=== PATIENT | female | born 1955 | race Caucasian/White ===

== ENCOUNTER 2020-09-09 07:44 | Emergency (ER) | payer MEDICARE ==
[2020-09-09 07:55] VITALS: BP 162/73; PULSE 66; RESP 16; TEMP 98.5
[2020-09-09] MEDS ORDERED: DIPH,PERTUS(ACELL)TETVAC-LF 0.5 ML VIAL IM ONE (08:05)
[2020-09-09] MEDS ORDERED: CEPHALEXIN 500MG STARTER PACK 4 CAP BTL PO STA (08:06)
--- NOTE | 2020-09-09 08:18 | ED ---
General Adult HPI - General Chief complaint: Wound/Laceration Stated complaint: Hand Lac Time Seen by Provider: 09/09/20 07:57 Source: patient, RN notes reviewed Mode of arrival: ambulatory Limitations: no limitations - History of Present Illness Initial comments: 64-year-old female presents to the emergency room for a chief complaint of laceration to the left hand. Patient states that 4 days ago she was using a zip tie when it caught her hand. Patient reports that she super glued it but now it does not seem to be healing as the superglue came off. She states there is some redness around it which she is concerned about. She denies any pain moving her fingers. Tetanus is not up-to-date.Patient has no other complaints at this time including shortness of breath, chest pain, abdominal pain, nausea or vomiting, headache, or visual changes. - Related Data Home Medications Medication Instructions Recorded Confirmed ALPRAZolam [Xanax] 0.5 mg PO BID PRN 01/24/15 01/24/15 Nebivolol [Bystolic] 5 mg PO DAILY 01/24/15 01/24/15 Venlafaxine HCl ER [Effexor Xr] 75 mg PO DAILY 01/24/15 01/24/15 Previous Rx's Medication Instructions Recorded Famotidine [Pepcid] 20 mg PO BID #60 tablet 01/24/15 diphenhydrAMINE [Benadryl] 25 mg PO TID PRN #30 capsule 01/24/15 predniSONE 50 mg PO DAILY 5 Days tab 01/24/15 Cephalexin [Keflex] 500 mg PO Q6HR 1 Days #28 cap 09/09/20 Allergies Allergy/AdvReac Type Severity Reaction Status Date / Time No Known Allergies Allergy Verified 09/09/20 07:55 Review of Systems ROS Statement: Those systems with pertinent positive or pertinent negative responses have been documented in the HPI. ROS Other: All systems not noted in ROS Statement are negative. Past Medical History Past Medical History: No Reported History History of Any Multi-Drug Resistant Organisms: None Reported Past Surgical History: No Surgical Hx Reported Past Psychological History: Anxiety, Depression, Panic Disorder Smoking Status: Former smoker Past Alcohol Use History: None Reported Past Drug Use History: None Reported General Exam Limitations: no limitations General appearance: alert, in no apparent distress Head exam: Present: atraumatic, normocephalic, normal inspection Eye exam: Present: normal appearance, PERRL, EOMI. Absent: scleral icterus, conjunctival injection, periorbital swelling ENT exam: Present: normal exam, mucous membranes moist Neck exam: Present: normal inspection. Absent: tenderness, meningismus, lymphadenopathy Respiratory exam: Present: normal lung sounds bilaterally. Absent: respiratory distress, wheezes, rales, rhonchi, stridor Cardiovascular Exam: Present: regular rate, normal rhythm, normal heart sounds. Absent: systolic murmur, diastolic murmur, rubs, gallop, clicks Extremities exam: Present: other (Patient has a 1 cm laceration noted to the dorsum of the left hand between the first and second metacarpals not quite in the web space. Wound is not gaping however there does not seem to be closure of the wound. There is slight granulation tissue causing an erythematous appearance to the wound how) Course Vital Signs 09/09/20 07:49 Temperature 98.5 F Pulse Rate 66 Respiratory 16 Rate Blood Pressure 162/73 O2 Sat by Pulse 97 Oximetry Medical Decision Making - Medical Decision Making Wound was cleaned with soap and water. Steri-Strips were applied as wound could not be closed with sutures given it has been open for 4 days at this point which would increase risk of infection. At this time I believe skin changes patient is concerned about are related to granulation tissue. The wound is not hot to touch, there is no spreading or streaking redness. There is no purulent drainage. I did discuss signs to watch for that would indicate infection. Given tissue will close by secondary intention healing at this point she was started on Keflex to prevent infection. I felt this was necessary as patient has agoraphobia and has not left her house in 2 years. She may have poor follow-up and therefore I would prefer to prevent infection from occurring. Tetanus is updated. I did recommend she follow up with her doctor. She will return here for any worsening symptoms. Disposition Clinical Impression: Laceration Disposition: HOME SELF-CARE Condition: Good Instructions (If sedation given, give patient instructions): Laceration (ED), Steristrips (ED) Additional Instructions: Please monitor for spreading redness or streaking redness up the hand or fevers and return if these occur. Otherwise this laceration will heal from the inside out. Tried to keep dirty water out of it. Steri-Strips may help keep the wound closed. Follow-up with your doctor in one to 2 days for a recheck. However if you have any worsening symptoms return to the emergency room. Prescriptions: Cephalexin [Keflex] 500 mg PO Q6HR 1 Days #28 cap Is patient prescribed a controlled substance at d/c from ED?: No Referrals: Jason Dietrich MD [Primary Care Provider] - 1-2 days Time of Disposition: 08:16
== END 2020-09-09 08:29 | disposition home or self-care (01) ==
LOC: EC 07:44
DX: S61.412A Laceration without foreign body of left hand, initial encounter (principal); F41.9 Anxiety disorder, unspecified; F32.9 Major depressive disorder, single episode, unspecified; F40.01 Agoraphobia with panic disorder; Z79.899 Other long term (current) drug therapy; Z23 Encounter for immunization; Z87.891 Personal history of nicotine dependence; W26.8XXA Contact with other sharp object(s), not elsewhere classified, initial encounter; Y93.89 Activity, other specified
CPT/HCPCS: 90471; 90715; 99282

== ENCOUNTER 2021-11-29 11:35 | Inpatient (IN) | payer MEDICARE ==
[2021-11-29] MEDS ORDERED: SODIUM CHLORIDE 0.9% 1,000 ML IV STA (13:16)
[2021-11-29] MEDS ORDERED: ONDANSETRON 4 MG/2 ML VIAL IVP STA (13:18)
[2021-11-29 13:41] LABS: Basophils % (A) 0 %; Eosinophils % (A) 1 %; HGB 12.2 gm/dL (11.4-16.0); Lymphocytes # (A) 0.9 k/uL (1.0-4.8); Lymphocytes % (A) 14 %; MCH 32.6 pg (25.0-35.0); MCHC 34.8 g/dL (31.0-37.0); MCV 93.6 fL (80.0-100.0); Mean Platelet Volume 7.4; Monocytes # (A) 0.5 k/uL (0-1.0); Monocytes % (A) 8 %; Neutrophils # (A) 4.8 k/uL (1.3-7.7); Neutrophils % (A) 76 %; Platelet Count 131 k/uL (150-450); Poikilocytosis Moderate; RBC 3.74 m/uL (3.80-5.40); RDW 15.6 % (11.5-15.5); WBC 6.3 k/uL (3.8-10.6)
[2021-11-29 13:50] LABS: ALT 32 U/L (4-34); AST 81 U/L (14-36); African American GFR (CKD) >90 (>60 ml/min/1.73 sqM); Alkaline Phosphatase 120 U/L (38-126); Amylase 70 U/L (30-110); Anion Gap 9 mmol/L; Blood Urea Nitrogen 17 mg/dL (7-17); Calcium 7.6 mg/dL (8.4-10.2); Carbon Dioxide 27 mmol/L (22-30); Chloride 106 mmol/L (98-107); Glucose 110 mg/dL (74-99); Lipase 584 U/L (23-300); Magnesium 2.2 mg/dL (1.6-2.3); Non-African American GFR(CKD) 89 (>60 ml/min/1.73 sqM); Potassium 3.4 mmol/L (3.5-5.1); Sodium 142 mmol/L (137-145); Total Bilirubin 1.7 mg/dL (0.2-1.3); Total Protein 7.2 g/dL (6.3-8.2)
--- NOTE | 2021-11-29 13:52 | XR ---
EXAMINATION TYPE: XR chest 2V DATE OF EXAM: 11/29/2021 COMPARISON: 11/19/2011 TECHNIQUE: PA and lateral views submitted. HISTORY: Shortness of breath FINDINGS: There are diffuse bilateral infiltrates. No pleural effusion or pneumothorax. Arthropathy of the shou lders. Heart size normal. Hypertrophic and degenerative change of the spine. IMPRESSION: 1. Diffuse bilateral infiltrates. Correlate for multifocal pneumonia.
[2021-11-29 14:01] LABS: INR 1.1 (<1.2); Prothrombin Time 11.1 sec (9.0-12.0)
--- NOTE | 2021-11-29 14:03 | ED ---
General Adult HPI - General Chief complaint: Nausea/Vomiting/Diarrhea Stated complaint: nausea, vomiting, diarrhea Time Seen by Provider: 11/29/21 11:40 Source: patient, EMS, RN notes reviewed Mode of arrival: EMS - History of Present Illness Initial comments: 66-year-old female presents to the emergency room for not feeling well. For the past week patient has been sick with nausea vomiting diarrhea, cough, congestion and shortness of breath. Apparently patient is not vaccinated for Covid but hasn't left her house in years until last week when she had to take her grandchi ldren to the hospital. Shortly afterwards patient became ill. Patient has not seen a doctor in several years as she does not leave the house and therefore has no known medical history. Patient has no other complaints at this time including chest pain, abdominal pain, headache, or visual changes. - Related Data Home Medications Medication Instructions Recorded Confirmed ALPRAZolam [Xanax] 0.5 mg PO BID PRN 01/24/15 01/24/15 Nebivolol [Bystolic] 5 mg PO DAILY 01/24/15 01/24/15 Venlafaxine HCl ER [Effexor Xr] 75 mg PO DAILY 01/24/15 01/24/15 Previous Rx's Medication Instructions Recorded Famotidine [Pepcid] 20 mg PO BID #60 tablet 01/24/15 diphenhydrAMINE [Benadryl] 25 mg PO TID PRN #30 capsule 01/24/15 predniSONE 50 mg PO DAILY 5 Days tab 01/24/15 Cephalexin [Keflex] 500 mg PO Q6HR 1 Days #28 cap 09/09/20 Allergies Allergy/AdvReac Type Severity Reaction Status Date / Time No Known Allergies Allergy Verified 11/29/21 12:10 Review of Systems ROS Statement: Those systems with pertinent positive or pertinent negative responses have been documented in the HPI. ROS Other: All systems not noted in ROS Statement are negative. Past Medical History Past Medical History: No Reported History History of Any Multi-Drug Resistant Organisms: None Reported Past Surgical History: No Surgical Hx Reported Additional Past Surgical History / Comment(s): rhinoblasty, bladder suspension, Past Psychological History: Anxiety, Depression, Panic Disorder Smoking Status: Former smoker Past Alcohol Use History: None Reported Past Drug Use History: None Reported General Exam General appearance: alert, in no apparent distress Head exam: Present: atraumatic Eye exam: Present: normal appearance, PERRL, EOMI. Absent: scleral icterus, conjunctival injection ENT exam: Present: normal exam, mucous membranes moist Neck exam: Present: normal inspection, tenderness, full ROM Respiratory exam: Present: rales. Absent: respiratory distress, wheezes Cardiovascular Exam: Present: regular rate, normal rhythm, normal heart sounds GI/Abdominal exam: Present: soft, normal bowel sounds. Absent: distended, tenderness Course Vital Signs 11/29/21 12:01 Temperature 97.6 F Pulse Rate 82 Respiratory 22 Rate Blood Pressure 154/81 O2 Sat by Pulse 91 L Oximetry EKG Findings - EKG Comments: EKG Findings:: Normal sinus rhythm, ventricular rate 79, [place] interval 126, QTc 463 Medical Decision Making - Medical Decision Making Patient is 91% on 4 L nasal cannula. She was 88% on room air. Laboratory evaluation relatively unremarkable. However, covid 19 was detected. Age- adjusted d-dimer is within normal limits. Chest x-ray shows diffuse bilateral infiltrates, correlate for multifocal pneumonia. Suspect patient's symptoms are secondary to COVID-19. Patient will be admitted, Dr. Cantu aware requests pul monology consultation. Patient will be started on Decadron. - Lab Data Result diagrams: 11/29/21 13:37 11/29/21 13:37 Lab Results 11/29/21 11/29/21 11/29/21 Range/Units 13:37 13:37 13:37 WBC 6.3 (3.8-10.6) k/uL RBC 3.74 L (3.80-5.40) m/uL Hgb 12.2 (11.4-16.0) gm/dL Hct 35.0 (34.0-46.0) % MCV 93.6 (80.0-100.0) fL MCH 32.6 (25.0-35.0) pg MCHC 34.8 (31.0-37.0) g/dL RDW 15.6 H (11.5-15.5) % Plt Count 131 L (150-450) k/uL MPV 7.4 Neutrophils % 76 % Lymphocytes % 14 % Monocytes % 8 % Eosinophils % 1 % Basophils % 0 % Neutrophils # 4.8 (1.3-7.7) k/uL Lymphocytes # 0.9 L (1.0-4.8) k/uL Monocytes # 0.5 (0-1.0) k/uL Eosinophils # 0.0 (0-0.7) k/uL Basophils # 0.0 (0-0.2) k/uL Poikilocytosis Moderate PT 11.1 (9.0-12.0) sec INR 1.1 (<1.2) APTT 21.2 L (22.0-30.0) sec D-Dimer 0.62 H (<0.60) mg/L FEU Sodium 142 (137-145) mmol/L Potassium 3.4 L (3.5-5.1) mmol/L Chloride 106 (98-107) mmol/L Carbon Dioxide 27 (22-30) mmol/L Anion Gap 9 mmol/L BUN 17 (7-17) mg/dL Creatinine 0.71 (0.52-1.04) mg/dL Est GFR (CKD-EPI)AfAm >90 (>60 ml/min/1.73 sqM) Est GFR (CKD-EPI)NonAf 89 (>60 ml/min/1.73 sqM) Glucose 110 H (74-99) mg/dL Calcium 7.6 L (8.4-10.2) mg/dL Magnesium 2.2 (1.6-2.3) mg/dL Total Bilirubin 1.7 H (0.2-1.3) mg/dL AST 81 H (14-36) U/L ALT 32 (4-34) U/L Alkaline Phosphatase 120 (38-126) U/L Troponin I (0.000-0.034) ng/mL Total Protein 7.2 (6.3-8.2) g/dL Albumin 3.0 L (3.5-5.0) g/dL Amylase 70 (30-110) U/L Lipase 584 H (23-300) U/L Coronavirus (PCR) (Not Detectd) 11/29/21 11/29/21 Range/Units 13:37 13:44 WBC (3.8-10.6) k/uL RBC (3.80-5.40) m/uL Hgb (11.4-16.0) gm/dL Hct (34.0-46.0) % MCV (80.0-100.0) fL MCH (25.0-35.0) pg MCHC (31.0-37.0) g/dL RDW (11.5-15.5) % Plt Count (150-450) k/uL MPV Neutrophils % % Lymphocytes % % Monocytes % % Eosinophils % % Basophils % % Neutrophils # (1.3-7.7) k/uL Lymphocytes # (1.0-4.8) k/uL Monocytes # (0-1.0) k/uL Eosinophils # (0-0.7) k/uL Basophils # (0-0.2) k/uL Poikilocytosis PT (9.0-12.0) sec INR (<1.2) APTT (22.0-30.0) sec D-Dimer (<0.60) mg/L FEU Sodium (137-145) mmol/L Potassium (3.5-5.1) mmol/L Chloride (98-107) mmol/L Carbon Dioxide (22-30) mmol/L Anion Gap mmol/L BUN (7-17) mg/dL Creatinine (0.52-1.04) mg/dL Est GFR (CKD-EPI)AfAm (>60 ml/min/1.73 sqM) Est GFR (CKD-EPI)NonAf (>60 ml/min/1.73 sqM) Glucose (74-99) mg/dL Calcium (8.4-10.2) mg/dL Magnesium (1.6-2.3) mg/dL Total Bilirubin (0.2-1.3) mg/dL AST (14-36) U/L ALT (4-34) U/L Alkaline Phosphatase (38-126) U/L Troponin I <0.012 (0.000-0.034) ng/mL Total Protein (6.3-8.2) g/dL Albumin (3.5-5.0) g/dL Amylase (30-110) U/L Lipase (23-300) U/L Coronavirus (PCR) Detected A (Not Detectd) Disposition Clinical Impression: COVID-19, Acute respiratory failure with hypoxia, Pneumonia due to COVID-19 virus Disposition: ADMITTED IP TO THIS HOSP Is patient prescribed a controlled substance at d/c from ED?: No Referrals: None,Stated [Primary Care Provider] - 1-2 days Time of Disposition: 14:56
[2021-11-29 14:18] LABS: Partial Thromboplastin Time 21.2 sec (22.0-30.0)
[2021-11-29] MEDS ORDERED: NALOXONE 0.4 MG/ML 1 ML VIAL IV PRN (14:56)
[2021-11-29] MEDS ORDERED: ACETAMINOPHEN TAB 325 MG TAB PO PRN (14:56)
[2021-11-29] MEDS ORDERED: ONDANSETRON 4 MG/2 ML VIAL IVP PRN (14:56)
[2021-11-29] MEDS ORDERED: DEXAMETHASONE SOD PHOSPHATE 10 MG/ML 1 ML VIAL IVP STA (14:58)
[2021-11-29] MEDS: SODIUM CHLORIDE 0.9% 1,000 ML IV SCH (15:20)
[2021-11-29 15:36] LABS: C Reactive Protein 4.2 mg/dL (<1.0)
--- NOTE | 2021-11-29 18:31 | P.CNPUL ---
History of Present Illness Consult date: 11/29/21 Reason for consult: dyspnea, hypoxemia, pneumonia History of present illness: 66-year-old female patient, came into the emergency department because of her last weakness, fatigue, nausea and emesis, diarrhea, cough and congestion and shortness of breath. Apparently, the patient has been essentially staying at home without any exposure to any individuals outside her house. Nevertheless, few weeks back, she took her grandchildren to [facility] in the short and she thought that she got exposed to COVID 19 at that time. She started getting symptomatic more than 2 weeks ago. She is coming in with worsening of shortness of breath and overall condition. Note that during this time, the patient did not seek any medical help and she did not take any treatment. The patient has not been vaccinated for COVID 19. She came into the emergency with diffuse bilateral pulmonary infiltrates and hypoxemia and the patient was placed on oxygen 6 L per minute nasal cannula. The patient was hemodynamically stable. The patient was somewhat dehydrated. BUN was at 17 with a creatinine of 0.7 and a white cell count is 6.3. LFTs showed an AST of 81, ALT of 32, alk phos of 120, Na 142, troponin was negative and the COVID 19 virus by PCR came back positive. Review of Systems Constitutional: Reports daytime sleepiness, Reports fatigue, Reports fever, Reports lethargy, Reports malaise, Reports poor appetite, Reports weakness Eyes: denies as per HPI, denies blurred vision, denies bulging eye, denies decreased vision, denies diplopia, denies discharge, denies dry eye, denies irritation, denies itching, denies pain, denies photophobia, denies loss of peripheral vision, denies loss of vision, denies tunnel vision/blind spots Ears: deny: decreased hearing, ear discharge, earache, tinnitus Ears, nose, mouth and throat: Reports as per HPI Breasts: absent: as per HPI, change in shape, gynecomastia, masses, nipple discharge, pain, skin changes, swelling Cardiovascular: Reports dyspnea on exertion Respiratory: Reports cough, Reports dyspnea Gastrointestinal: Reports as per HPI, Reports diarrhea, Reports nausea, Reports vomiting Genitourinary: Reports as per HPI Menstruation: Reports as per HPI Musculoskeletal: Reports as per HPI Musculoskeletal: absent: ankle pain, ankle stiffness, ankle swelling, as per HPI, elbow pain, elbow stiffness, elbow swelling, foot pain, foot stiffness, foot swelling, hand pain, hand stiffness, hand swelling, hip pain, hip stiffness, hip swelling, knee pain, knee stiffness, knee swelling, shoulder pain, shoulder stiffness, shoulder swelling, wrist pain, wrist stiffness, wrist swelling Integumentary: Reports as per HPI Neurological: Reports as per HPI Psychiatric: Reports as per HPI Endocrine: Reports as per HPI, Reports fatigue Hematologic/Lymphatic: Reports as per HPI Allergic/Immunologic: Reports as per HPI Past Medical History Past Medical History: No Reported History History of Any Multi-Drug Resistant Organisms: None Reported Past Surgical History: No Surgical Hx Reported Additional Past Surgical History / Comment(s): rhinoblasty, bladder suspension, Past Psychological History: Anxiety, Depression, Panic Disorder Smoking Status: Former smoker Past Alcohol Use History: None Reported Past Drug Use History: None Reported Medications and Allergies Home Medications Medication Instructions Recorded Confirmed Type ALPRAZolam [Xanax] 0.5 mg PO BID PRN 01/24/15 01/24/15 History Famotidine [Pepcid] 20 mg PO BID #60 tablet 01/24/15 Rx Nebivolol [Bystolic] 5 mg PO DAILY 01/24/15 01/24/15 History Venlafaxine HCl ER [Effexor Xr] 75 mg PO DAILY 01/24/15 01/24/15 History diphenhydrAMINE [Benadryl] 25 mg PO TID PRN #30 capsule 01/24/15 Rx predniSONE 50 mg PO DAILY 5 Days tab 01/24/15 Rx Cephalexin [Keflex] 500 mg PO Q6HR 1 Days #28 cap 09/09/20 Rx Allergies Allergy/AdvReac Type Severity Reaction Status Date / Time No Known Allergies Allergy Verified 11/29/21 12:10 Physical Exam Vitals: Vital Signs Temp Pulse Resp BP Pulse Ox 11/29/21 17:26 89 20 147/68 91 L 11/29/21 16:00 99.1 F 70 20 147/75 96 11/29/21 14:00 80 14 126/51 88 L 11/29/21 12:30 77 29 H 152/70 94 L 11/29/21 12:08 91 L 11/29/21 12:01 97.6 F 82 22 154/81 91 L Intake and Output 11/29/21 11/29/2121 06:59 14:59 22:59 Other: Weight 99.79 kg General appearance: alert, in no apparent distress, looks lethargic currently on 6 L by nasal cannula Head exam: Present: atraumatic Eye exam: Present: normal appearance, PERRL, EOMI. Absent: scleral icterus, conjunctival injection ENT exam: Present: normal exam, mucous membranes moist Neck exam: Present: normal inspection, tenderness, full ROM Respiratory exam: Lungs diminished breath sounds bilaterally along with crackles in the lung bases Cardiovascular Exam: Present: regular rate, normal rhythm, normal heart sounds GI/Abdominal exam: Present: soft, normal bowel sounds. Absent: distended, tenderness Examination of the extremities revealed easily palpable radial, femoral and pedal pulses. There was no cyanosis, clubbing or edema. Examination of the skin revealed no evidence of significant rashes, suspicious appearing nevi or other concerning lesions. Neurologically, the patient is awake and alert and the patient does not have any focal neurological deficit. Cranial nerves are essentially intact. Results - Laboratory Findings CBC and BMP: 11/29/21 13:37 11/29/21 13:37 PT/INR, D-dimer PT 11.1 sec (9.0-12.0) 11/29/21 13:37 INR 1.1 (<1.2) 11/29/21 13:37 D-Dimer 0.62 mg/L FEU (<0.60) H 11/29/21 13:37 Abnormal lab findings: Abnormal Labs 11/29/21 11/29/21 11/29/21 13:37 13:37 13:37 RBC 3.74 L RDW 15.6 H Plt Count 131 L Lymphocytes # 0.9 L APTT 21.2 L D-Dimer 0.62 H Potassium 3.4 L Glucose 110 H Calcium 7.6 L Total Bilirubin 1.7 H AST 81 H Lactate Dehydrogenase C-Reactive Protein Albumin 3.0 L Lipase 584 H Coronavirus (PCR) 11/29/21 11/29/21 13:44 15:14 RBC RDW Plt Count Lymphocytes # APTT D-Dimer Potassium Glucose Calcium Total Bilirubin AST Lactate Dehydrogenase 1027 H C-Reactive Protein 4.2 H Albumin Lipase Coronavirus (PCR) Detected A - Diagnostic Findings Chest x-ray: image reviewed Assessment and Plan Plan: 1 Covid 19 related pneumonia with secondary respiratory distress, cough and shortness of breath and hypoxic respiratory failure, symptoms started more than 2 weeks ago and the patient has not received any treatment on an outpatient basis. This is a non-vaccinated individual 2 acute hypoxic respiratory failure secondary to above currently on 6 L 3 nausea and emesis and diarrhea secondary to above 4 obesity with a BMI of 36 5 elevation of lipase level, nonspecific Plan Titrate FiO2 to maintain saturation above 90% Started patient on Decadron 6 mg IV 24 hours The patient is not a candidate for Remdesivir treatment and she is also in the window D-dimer is low and the patient was started on Lovenox 40 prophylaxis 40 mg subcu Vitamin C and vitamin D and zinc Pro calcitonin level to be checked IV fluids with normal state rate of 75 mL an hour We'll continue to follow
--- NOTE | 2021-11-29 22:51 | P.HPIM ---
History of Present Illness H&P Date: 11/29/21 Chief Complaint: Shortness of breath Patient is a 66-year-old female with a known history of anxiety/depression panic disorder and previous history of smoking presents to ER with complaints of nausea vomiting diarrhea, cough and chest congestion and shortness of breath. Patient has not been feeling well for the past 2 weeks. Patient states that she took her grandchildren to the hospital at [facility]. Shortly after that patient became ill. Denied any complaints of chest pain. No abdominal pain. No headache or dizziness or lightheadedness. Chest x-ray showed diffuse bilateral infiltrates. Correlate for multifocal pneumonia. EKG showed normal sinus rhythm Laboratory showed WBC 6.3 hemoglobin 12.2 and platelets 131 lymphocytes 0.9 D- dimer 0.62 Sodium 142 potassium 3.4 chloride 106 magnesium 2.2 total bilirubin level is 1.7 AST 81 ALT 32 alk phos 120 LDH 1027 and CRP 4.2 Lipase level is 584 Coronavirus PCR On admission patient is tachypneic and pulse ox dropped down to 88% on room air. Currently requiring oxygen at 4 L via nasal cannula. Review of Systems Constitutional: Patient denies any fever or chills . No generalized weakness or weight loss. Abdomen: Generalized weakness and fatigue. Patient does have nausea vomiting and diarrhea. No abdominal pain.. Cardiovascular: Patient denies any chest pain or short of breath no palpitations. Respiratory: Patient does have cough congestion and shortness of breath Neurologic: Patient denied any numbness or tingling headache. Musculoskeletal: Patient denies any complaints of joint swelling or deformity. Skin: Negative Psychiatric: Negative Endocrine: No heat or cold intolerance. No recent weight gain. Genitourinary: No dysuria or hematuria. All other 14 point ROS negative except the above Past Medical History Past Medical History: No Reported History History of Any Multi-Drug Resistant Organisms: None Reported Past Surgical History: No Surgical Hx Reported Additional Past Surgical History / Comment(s): rhinoblasty, bladder suspension, Past Psychological History: Anxiety, Depression, Panic Disorder Smoking Status: Former smoker Past Alcohol Use History: None Reported Past Drug Use History: None Reported Medications and Allergies Home Medications Medication Instructions Recorded Confirmed Type ALPRAZolam [Xanax] 0.5 mg PO BID PRN 01/24/15 01/24/15 History Famotidine [Pepcid] 20 mg PO BID #60 tablet 01/24/15 Rx Nebivolol [Bystolic] 5 mg PO DAILY 01/24/15 01/24/15 History Venlafaxine HCl ER [Effexor Xr] 75 mg PO DAILY 01/24/15 01/24/15 History diphenhydrAMINE [Benadryl] 25 mg PO TID PRN #30 capsule 01/24/15 Rx predniSONE 50 mg PO DAILY 5 Days tab 01/24/15 Rx Cephalexin [Keflex] 500 mg PO Q6HR 1 Days #28 cap 09/09/20 Rx Allergies Allergy/AdvReac Type Severity Reaction Status Date / Time No Known Allergies Allergy Verified 11/29/21 12:10 Physical Exam Vitals: Vital Signs Temp Pulse Resp BP Pulse Ox 11/29/21 19:30 62 20 128/67 94 L 11/29/21 17:26 89 20 147/68 91 L 11/29/21 16:00 99.1 F 70 20 147/75 96 11/29/21 14:00 80 14 126/51 88 L 11/29/21 12:30 77 29 H 152/70 94 L 11/29/21 12:08 91 L 11/29/21 12:01 97.6 F 82 22 154/81 91 L Intake and Output 11/29/21 11/29/21 11/29/21 06:59 14:59 22:59 Other: Weight 99.79 kg PHYSICAL EXAMINATION: Patient is lying in the bed comfortably, mild distress, awake alert and oriented.. HEENT: Normocephalic. Neck is supple. Pupils reactive. Nostrils clear. Oral cavity is moist. Neck reveals no JVD, carotid bruits, or thyromegaly. CHEST EXAMINATION: Trachea is central. Symmetrical expansion. Lung carmona clear to auscultation and percussion. CARDIAC: Normal S1, S2 with no gallops. No murmurs ABDOMEN: Soft. Bowel sounds normal. No organomegaly. No abdominal bruits. Extremities: reveal no edema. No clubbing or cyanosis Neurologically awake, alert, oriented x3 with well-coordinated movements. No focal deficits noted Skin: No rash or skin lesions. Psychiatric: Cooperative. Nonsuicidal, anxious Musculoskeletal: No joint swelling or deformity. Normal range of motion. Results CBC & Chem 7: 11/29/21 13:37 11/29/21 13:37 Labs: Abnormal Lab Results - Last 24 Hours (Table) 11/29/21 11/29/21 11/29/21 Range/Units 13:37 13:37 13:37 RBC 3.74 L (3.80-5.40) m/uL RDW 15.6 H (11.5-15.5) % Plt Count 131 L (150-450) k/uL Lymphocytes # 0.9 L (1.0-4.8) k/uL APTT 21.2 L (22.0-30.0) sec D-Dimer 0.62 H (<0.60) mg/L FEU Potassium 3.4 L (3.5-5.1) mmol/L Glucose 110 H (74-99) mg/dL Calcium 7.6 L (8.4-10.2) mg/dL Total Bilirubin 1.7 H (0.2-1.3) mg/dL AST 81 H (14-36) U/L Lactate Dehydrogenase (313-618) U/L C-Reactive Protein (<1.0) mg/dL Albumin 3.0 L (3.5-5.0) g/dL Lipase 584 H (23-300) U/L Coronavirus (PCR) (Not Detectd) 11/29/21 11/29/21 Range/Units 13:44 15:14 RBC (3.80-5.40) m/uL RDW (11.5-15.5) % Plt Count (150-450) k/uL Lymphocytes # (1.0-4.8) k/uL APTT (22.0-30.0) sec D-Dimer (<0.60) mg/L FEU Potassium (3.5-5.1) mmol/L Glucose (74-99) mg/dL Calcium (8.4-10.2) mg/dL Total Bilirubin (0.2-1.3) mg/dL AST (14-36) U/L Lactate Dehydrogenase 1027 H (313-618) U/L C-Reactive Protein 4.2 H (<1.0) mg/dL Albumin (3.5-5.0) g/dL Lipase (23-300) U/L Coronavirus (PCR) Detected A (Not Detectd) Assessment and Plan Assessment: Acute hypoxic respiratory failure requiring oxygen at 4 L via nasal cannula. Secondary to COVID-19 pneumonia. Patient has been having symptoms for more than 2 weeks. Patient is not vaccinated. Acute COVID-19 pneumonia Elevated inflammatory markers Nausea vomiting and diarrhea secondary to above Elevated lipase level likely due to intractable nausea and vomiting Obesity with BMI 36.6 DVT prophylaxis Lovenox subcu Plan: Patient will be continued on oxygen supplementation and titrate down FiO2 as tolerated. Continue with dexamethasone 6 mg daily and Lovenox subcu and multivitamins. Continue GI and DVT prophylaxis. Pulmonary is on board. Patient is not a candidate for remdesivir at this time. Continue to follow mary ellington. Time with Patient: Greater than 30
[2021-11-29] MEDS: CHOLECALCIFEROL 25 MCG (1000 IU) TABLET PO SCH (23:14)
[2021-11-29] MEDS: ASCORBIC ACID 500 MG TAB PO SCH (23:14)
[2021-11-29] MEDS: ZINC SULFATE 220 MG CAP PO SCH (23:15)
[2021-11-29] MEDS: FAMOTIDINE 20 MG/2 ML VIAL IV SCH (23:15)
[2021-11-29] MEDS: ENOXAPARIN 40 MG/0.4 ML SYRINGE SQ SCH (23:35)
[2021-11-30] MEDS: SODIUM CHLORIDE 0.9% 1,000 ML IV SCH ×2 (06:03→16:34)
[2021-11-30] MEDS: CHOLECALCIFEROL 25 MCG (1000 IU) TABLET PO SCH (07:20)
[2021-11-30] MEDS: ZINC SULFATE 220 MG CAP PO SCH (07:20)
[2021-11-30] MEDS: FAMOTIDINE 20 MG/2 ML VIAL IV SCH ×2 (07:20→22:32)
[2021-11-30] MEDS: ASCORBIC ACID 500 MG TAB PO SCH (07:20)
[2021-11-30] MEDS: VENLAFAXINE HCL ER 75 MG CAP PO SCH (07:20)
[2021-11-30] MEDS: ENOXAPARIN 40 MG/0.4 ML SYRINGE SQ SCH (07:21)
[2021-11-30] MEDS: DEXAMETHASONE SOD PHOSPHATE 10 MG/ML 1 ML VIAL IVP SCH (07:21)
--- NOTE | 2021-11-30 12:33 | P.PN ---
Subjective Progress Note Date: 11/30/21 Principal diagnosis: CoVID pneumonia 66-year-old female patient, came into the emergency department because of her last weakness, fatigue, nausea and emesis, diarrhea, cough and congestion and shortness of breath. Apparently, the patient has been essentially staying at home without any exposure to any individuals outside her house. Nevertheless, few weeks back, she took her [facility] to [facility] the [place] and she thought that she got exposed to COVID 19 at that time. She started getting symptomatic more than 2 weeks ago. She is coming in with worsening of shortness of breath and overall condition. Note that during this time, the patient did not seek any medical help and she did not take any treatment. The patient has not been vaccinated for COVID 19. She came into the emergency with diffuse bilateral pulmonary infiltrates and hypoxemia and the patient was placed on oxygen 6 L per minute nasal cannula. The patient was hemodynamically stable. The patient was somewhat dehydrated. BUN was at 17 with a creatinine of 0.7 and a white cell count is 6.3. LFTs showed an AST of 81, ALT of 32, alk phos of 120, Na 142, troponin was negative and the COVID 19 virus by PCR came back positive. The patient is seen today 11/30/2021 in follow-up on the regular medical floor. She is currently resting in bed. Awake and alert in no acute distress. She is still dyspneic with minimal exertion. Dyspneic with conversation. Fatigue and weak. He is currently on 5 L high flow nasal cannula to maintain O2 saturations in the low 90s. She's been afebrile. Hemodynamically stable. Labs are pending. She is continued on Decadron, Lovenox, vitamin supplements. Objective - Vital Signs Vital signs: Vital Signs Temp 97.3 F L 11/30/21 09:11 Pulse 63 11/30/21 09:11 Resp 16 11/30/21 09:25 BP 156/80 11/30/21 09:11 Pulse Ox 92 L 11/30/21 09:11 Intake & Output 11/29/21 11/30/21 11/30/21 18:59 06:59 18:59 Weight 99.79 kg 99.79 kg Other: Voiding Method Bedpan Bedpan # Voids 1 - Exam GENERAL EXAM: Alert, pleasant 66-year-old female on 5 L nasal cannula, fairly comfortable in no apparent distress. HEAD: Normocephalic. EYES: Normal reaction of pupils, equal size. NOSE: Clear with pink turbinates. THROAT: No erythema or exudates. NECK: No masses, no JVD. CHEST: No chest wall deformity. LUNGS: Equal air entry with coarse crackles in the posterior bases. CVS: S1 and S2 normal with no audible murmur, regular rhythm. ABDOMEN: No hepatosplenomegaly, normal bowel sounds, no guarding or rigidity. SPINE: No scoliosis or deformity SKIN: No rashes CENTRAL NERVOUS SYSTEM: No focal deficits, tone is normal in all 4 extremities. EXTREMITIES: There is no peripheral edema. No clubbing, no cyanosis. Periph eral pulses are intact. - Labs CBC & Chem 7: 11/29/21 13:37 11/29/21 13:37 Labs: Abnormal Lab Results - Last 24 Hours (Table) 11/29/21 11/29/21 11/29/21 Range/Units 13:37 13:37 13:37 RBC 3.74 L (3.80-5.40) m/uL RDW 15.6 H (11.5-15.5) % Plt Count 131 L (150-450) k/uL Lymphocytes # 0.9 L (1.0-4.8) k/uL APTT 21.2 L (22.0-30.0) sec D-Dimer 0.62 H (<0.60) mg/L FEU Potassium 3.4 L (3.5-5.1) mmol/L Glucose 110 H (74-99) mg/dL Calcium 7.6 L (8.4-10.2) mg/dL Ferritin (10.0-291.0) ng/mL Total Bilirubin 1.7 H (0.2-1.3) mg/dL AST 81 H (14-36) U/L Lactate Dehydrogenase (313-618) U/L C-Reactive Protein (<1.0) mg/dL Albumin 3.0 L (3.5-5.0) g/dL Lipase 584 H (23-300) U/L Procalcitonin (0.02-0.09) ng/mL Coronavirus (PCR) (Not Detectd) 11/29/21 11/29/21 11/29/21 Range/Units 13:44 15:14 15:14 RBC (3.80-5.40) m/uL RDW (11.5-15.5) % Plt Count (150-450) k/uL Lymphocytes # (1.0-4.8) k/uL APTT (22.0-30.0) sec D-Dimer (<0.60) mg/L FEU Potassium (3.5-5.1) mmol/L Glucose (74-99) mg/dL Calcium (8.4-10.2) mg/dL Ferritin 699.0 H (10.0-291.0) ng/mL Total Bilirubin (0.2-1.3) mg/dL AST (14-36) U/L Lactate Dehydrogenase 1027 H (313-618) U/L C-Reactive Protein 4.2 H (<1.0) mg/dL Albumin (3.5-5.0) g/dL Lipase (23-300) U/L Procalcitonin 0.14 H (0.02-0.09) ng/mL Coronavirus (PCR) Detected A (Not Detectd) Assessment and Plan Assessment: 1 Covid 19 related pneumonia with secondary respiratory distress, cough and shortness of breath and hypoxic respiratory failure, symptoms started more than 2 weeks ago and the patient has not received any treatment on an outpatient basis. This is a non-vaccinated individual 2 acute hypoxic respiratory failure secondary to above currently on 5 L 3 nausea and emesis and diarrhea secondary to above 4 obesity with a BMI of 36 5 elevation of lipase level, nonspecific Plan The patient was seen and evaluated Today's labs are pending Currently on 5 L nasal cannula Continue on Decadron, Lovenox, vitamin supplements ProCalcitonin 0.14 Titrate down the FiO2 as tolerated Increase her activity as tolerated Add incentive spirometer Follow-up chest x-ray in the a.m. We will continue to follow I, the cosigning physician, performed a history & physical examination of the patient. Lungs sounds with coarse crackles in the bilateral bases. Maintaining good O2 saturations in the 90s on 5 L/m per nasal cannula. I discussed the assessment and plan of care with my nurse practitioner, Trinidad Shepard. I attest to the above note as dictated by her.
[2021-11-30 13:34] LABS: Basophils # (A) 0.01 X 10*3/uL (0.00-0.10); Basophils % (A) 0.2 %; Eosinophils # (A) 0 X 10*3/uL (0.04-0.35); Eosinophils % (A) 0 %; HCT 35.1 % (37.2-46.3); HGB 11.3 g/dL (12.0-15.0); Lymphocytes # (A) 0.58 X 10*3/uL (0.90-5.00); Lymphocytes % (A) 12.4 %; MCH 30.6 pg (27.0-32.0); MCHC 32.2 g/dL (32.0-37.0); MCV 95.1 fL (80.0-97.0); Monocytes # (A) 0.35 X 10*3/uL (0.20-1.00); Monocytes % (A) 7.5 %; Platelet Count 130 X 10*3/uL (140-440); RBC 3.69 X 10*6/uL (4.10-5.20); RDW 15.2 % (11.5-14.5); WBC 4.68 X 10*3/uL (4.50-10.00)
[2021-11-30 14:07] LABS: African American GFR (CKD) 104.9 (60.0-200.0); BUN/Creat Ratio 20.43 Ratio (12.00-20.00); Blood Urea Nitrogen 14.2 mg/dL (9.0-27.0); C Reactive Protein 3.7 mg/dL (0.00-0.80); Calcium 7.7 mg/dL (8.7-10.3); Carbon Dioxide 20.8 mmol/L (20.0-27.5); Non-African American GFR(CKD) 90.5 (60.0-200.0); Potassium 3.6 mmol/L (3.5-5.5)
[2021-11-30] MEDS: ALPRAZolam 0.5 MG TAB PO PRN (22:32)
[2021-12-01] MEDS: SODIUM CHLORIDE 0.9% 1,000 ML IV SCH ×2 (07:56→20:16)
[2021-12-01] MEDS: DEXAMETHASONE SOD PHOSPHATE 10 MG/ML 1 ML VIAL IVP SCH (08:13)
[2021-12-01] MEDS: ZINC SULFATE 220 MG CAP PO SCH (08:13)
[2021-12-01] MEDS: ASCORBIC ACID 500 MG TAB PO SCH (08:14)
[2021-12-01] MEDS: FAMOTIDINE 20 MG/2 ML VIAL IV SCH ×2 (08:14→20:16)
[2021-12-01] MEDS: ENOXAPARIN 40 MG/0.4 ML SYRINGE SQ SCH (08:14)
[2021-12-01] MEDS: CHOLECALCIFEROL 25 MCG (1000 IU) TABLET PO SCH (08:14)
[2021-12-01] MEDS: VENLAFAXINE HCL ER 75 MG CAP PO SCH (08:14)
[2021-12-01] MEDS: ALPRAZolam 0.5 MG TAB PO PRN (08:16)
--- NOTE | 2021-12-01 09:38 | XR ---
EXAMINATION TYPE: XR chest 1V portable DATE OF EXAM: 12/01/2021 COMPARISON: 11/29/2021 INDICATION: Pneumonia TECHNIQUE: Single frontal view of the chest is obtained. FINDINGS: The heart size is normal. The pulmonary vasculature is normal. Patchy peripheral infiltrates are present. Findings are stable. Findings can be compatible with atypi felipe pneumonia. IMPRESSION: 1. Patchy bilateral peripheral infiltrates compatible with atypical pneumonia and continued follow-up is recommended
--- NOTE | 2021-12-01 14:10 | P.PN ---
Subjective Progress Note Date: 12/01/21 Principal diagnosis: CoVID pneumonia 66-year-old female patient, came into the emergency department because of her last weakness, fatigue, nausea and emesis, diarrhea, cough and congestion and shortness of breath. Apparently, the patient has been essentially staying at home without any exposure to any individuals outside her house. Nevertheless, few weeks back, she took her grandchildren to [facility] in the short and she thought that she got exposed to COVID 19 at that time. She started getting symptomatic more than 2 weeks ago. She is coming in with worsening of shortness of breath and overall condition. Note that during this time, the patient did not seek any medical help and she did not take any treatment. The patient has not been vaccinated for COVID 19. She came into the emergency with diffuse bilateral pulmonary infiltrates and hypoxemia and the patient was placed on oxygen 6 L per minute nasal cannula. The patient was hemodynamically stable. The patient was somewhat dehydrated. BUN was at 17 with a creatinine of 0.7 and a white cell count is 6.3. LFTs showed an AST of 81, ALT of 32, alk phos of 120, Na 142, troponin was negative and the COVID 19 virus by PCR came back positive. The patient is seen today 11/30/2021 in follow-up on the regular medical floor. She is currently resting in bed. Awake and alert in no acute distress. She is still dyspneic with minimal exertion. Dyspneic with conversation. Fatigue and weak. He is currently on 5 L high flow nasal cannula to maintain O2 saturations in the low 90s. She's been afebrile. Hemodynamically stable. Labs are pending. She is continued on Decadron, Lovenox, vitamin supplements. The patient is seen today 12/01/2021 in follow-up on the regular medical floor. She is currently sitting up in a chair at the bedside. Awake and alert in no acute distress. She denies any worsening shortness of breath, cough or congestion. No fever or chills. She is maintaining O2 saturations in the 90s on 5 L/m per nasal cannula. She's been afebrile. Hemodynamically stable. She is continued on Decadron, Lovenox, vitamin supplements. White count 4.6. Hemoglobin 11.3. Leaflets 1:30. D-dimer 0.77. Sodium 144. Potassium 3.6. Creatinine 0.7. LDH 364. C-reactive protein 3.7. Lipase 130. Objective - Vital Signs Vital signs: Vital Signs Temp 97.7 F 12/01/21 09:56 Pulse 66 12/01/21 09:56 Resp 22 12/01/21 09:56 BP 149/75 12/01/21 09:56 Pulse Ox 92 L 12/01/21 09:56 Intake & Output 11/30/21 12/01/21 12/01/21 18:59 06:59 18:59 Intake Total 900 Balance 900 Intake: IV 900 Sodium Chloride 0.9% 1, 900 000 ml @ 75 mls/hr IV . [id number] [facility] Rx#:[id number] Other: Voiding Method Bedpan Bedpan Bedpan # Voids 1 - Exam GENERAL EXAM: Alert, pleasant obese 66-year-old female on 5 L nasal cannula, fairly comfortable in no apparent distress. HEAD: Normocephalic. EYES: Normal reaction of pupils, equal size. NOSE: Clear with pink turbinates. THROAT: No erythema or exudates. NECK: No masses, no JVD. CHEST: No chest wall deformity. LUNGS: Equal air entry with coarse crackles in the posterior bases. CVS: S1 and S2 normal with no audible murmur, regular rhythm. ABDOMEN: No hepatosplenomegaly, normal bowel sounds, no guarding or rigidity. SPINE: No scoliosis or deformity SKIN: No rashes CENTRAL NERVOUS SYSTEM: No focal deficits, tone is normal in all 4 extremities. EXTREMITIES: There is no peripheral edema. No clubbing, no cyanosis. Peripheral pulses are intact. - Labs CBC & Chem 7: 11/30/21 06:55 11/30/21 06:55 Labs: Abnormal Lab Results - Last 24 Hours (Table) 11/30/21 Range/Units 06:55 BUN/Creatinine Ratio 20.43 H (12.00-20.00) Ratio Glucose 138 H (70-110) mg/dL Calcium 7.7 L (8.7-10.3) mg/dL Lactate Dehydrogenase 364 H (120-246) U/L C-Reactive Protein 3.70 H (0.00-0.80) mg/dL Lipase 130 H (14-63) U/L Assessment and Plan Assessment: 1 Covid 19 related pneumonia with secondary respiratory distress, cough and shortness of breath and hypoxic respiratory failure, symptoms started more than 2 weeks ago and the patient has not received any treatment on an outpatient basis. This is a non-vaccinated individual 2 Acute hypoxic respiratory failure secondary to above currently on 5 L 3 Nausea and emesis and diarrhea secondary to above 4 Obesity with a BMI of 36 5 Elevation of lipase level, nonspecific Plan The patient was seen and evaluated Chest x-ray and labs reviewed Currently on 5 L nasal cannula Continue on Decadron, Lovenox, vitamin supplements Titrate down the FiO2 as tolerated Continue incentive spirometer We will continue to follow I, the cosigning physician, performed a history & physical examination of the patient. Lungs sounds with coarse crackles in the bilateral bases. Maintaining good O2 saturations in the 90s on 5 L/m per nasal cannula. I discussed the assessment and plan of care with my nurse practitioner, Trinidad Shepard. I attest to the above note as dictated by her.
--- NOTE | 2021-12-02 02:06 | P.PN ---
Subjective Progress Note Date: 11/30/21 Patient is a 66-year-old female with a known history of anxiety/depression panic disorder and previous history of smoking presents to ER with complaints of nausea vomiting diarrhea, cough and chest congestion and shortness of breath. Patient has not been feeling well for the past 2 weeks. Patient states that she took her grandchildren to the hospital at [facility]. Shortly after that patient became ill. Denied any complaints of chest pain. No abdominal pain. No headache or dizziness or lightheadedness. Chest x-ray showed diffuse bilateral infiltrates. Correlate for multifocal pneu monia. EKG showed normal sinus rhythm Laboratory showed WBC 6.3 hemoglobin 12.2 and platelets 131 lymphocytes 0.9 D- dimer 0.62 Sodium 142 potassium 3.4 chloride 106 magnesium 2.2 total bilirubin level is 1.7 AST 81 ALT 32 alk phos 120 LDH 1027 and CRP 4.2 Lipase level is 584 Coronavirus PCR On admission patient is tachypneic and pulse ox dropped down to 88% on room air. waas requiring oxygen at 4 L via nasal cannula. 11/30/2021 Patient is currently in the medical floor. Awake alert and oriented. No acute distress. Still having exertional dyspnea and feels very weak. Requiring oxygen 5 L via nasal cannula. Laboratory showed obesity 4.68 hemoglobin 11.3 and platelets 130 BUN 14.1 creatinine 0.7 LDH 364 and CRP 3.7 trending down. Patient is being continued dexamethasone, Lovenox subcu and multivitamin supplementation. On IV hydration with normal saline at 75 cc/h. REVIEW OF SYSTEMS CONSTITUTIONAL: Denies fever or chills. CARDIOVASCULAR: Denies chest pain, orthopnea, PND or palpitations. RESPIRATORY: Denies cough. GASTROINTESTINAL: Denies abdominal pain, diarrhea, constipation, nausea or vomiting. MUSCULOSKELETAL: Denies myalgias. NEUROLOGIC: Denies numbness, tingling or weakness. ENDOCRINE: Denies fatigue, weight change, polydipsia or polyurina. GENITOURINARY: Denies burning, hematuria or urgency with micturation. HEMATOLOGIC: Denies history of anemia or bleeding. Objective - Vital Signs Vital signs: Vital Signs Temp 97.6 F 11/30/21 17:48 Pulse 68 11/30/21 17:48 Resp 18 11/30/21 17:48 BP 127/76 11/30/21 17:48 Pulse Ox 96 11/30/21 17:48 Intake & Output 11/30/21 11/30/21 12/01/21 06:59 18:59 06:59 Intake Total 900 Balance 900 Weight 99.79 kg Intake: IV 900 Sodium Chloride 0.9% 1, 900 000 ml @ 75 mls/hr IV . [id number] [facility] Rx#:[id number] Other: Voiding Method Bedpan Bedpan # Voids 1 1 - Exam PHYSICAL EXAMINATION: Patient is lying in the bed comfortably, mild distress, awake alert and oriented.. HEENT: Normocephalic. Neck is supple. Pupils reactive. Nostrils clear. Oral cavity is moist. Neck reveals no JVD, carotid bruits, or thyromegaly. CHEST EXAMINATION: Trachea is central. Symmetrical expansion. Lung carmona clear to auscultation and percussion. CARDIAC: Normal S1, S2 with no gallops. No murmurs ABDOMEN: Soft. Bowel sounds normal. No organomegaly. No abdominal bruits. Extremities: reveal no edema. No clubbing or cyanosis Neurologically awake, alert, oriented x3 with well-coordinated movements. No focal deficits noted Skin: No rash or skin lesions. Psychiatric: Cooperative. Nonsuicidal, anxious Musculoskeletal: No joint swelling or deformity. Normal range of motion. - Labs CBC & Chem 7: 11/30/21 06:55 11/30/21 06:55 Labs: Abnormal Lab Results - Last 24 Hours (Table) 11/29/21 11/29/21 11/30/21 Range/Units 15:14 15:14 06:55 RBC (4.10-5.20) X 10*6/uL Hgb (12.0-15.0) g/dL Hct (37.2-46.3) % RDW (11.5-14.5) % Plt Count (140-440) X 10*3/uL Lymphocytes # (0.90-5.00) X 10*3/uL Eosinophils # (0.04-0.35) X 10*3/uL D-Dimer (<0.60) mg/L FEU BUN/Creatinine Ratio 20.43 H (12.00-20.00) Ratio Glucose 138 H (70-110) mg/dL Calcium 7.7 L (8.7-10.3) mg/dL Ferritin 699.0 H (10.0-291.0) ng/mL Lactate Dehydrogenase 364 H (120-246) U/L C-Reactive Protein 3.70 H (0.00-0.80) mg/dL Lipase 130 H (14-63) U/L Procalcitonin 0.14 H (0.02-0.09) ng/mL 11/30/21 11/30/21 Range/Units 06:55 12:34 RBC 3.69 L (4.10-5.20) X 10*6/uL Hgb 11.3 L (12.0-15.0) g/dL Hct 35.1 L (37.2-46.3) % RDW 15.2 H (11.5-14.5) % Plt Count 130 L (140-440) X 10*3/uL Lymphocytes # 0.58 L (0.90-5.00) X 10*3/uL Eosinophils # 0 L (0.04-0.35) X 10*3/uL D-Dimer 0.77 H (<0.60) mg/L FEU BUN/Creatinine Ratio (12.00-20.00) Ratio Glucose (70-110) mg/dL Calcium (8.7-10.3) mg/dL Ferritin (10.0-291.0) ng/mL Lactate Dehydrogenase (120-246) U/L C-Reactive Protein (0.00-0.80) mg/dL Lipase (14-63) U/L Procalcitonin (0.02-0.09) ng/mL Assessment and Plan Assessment: Acute hypoxic respiratory failure requiring oxygen at 5 L via nasal cannula. Secondary to COVID-19 pneumonia. Patient has been having symptoms for more than 2 weeks. Patient is not vaccinated. Acute COVID-19 pneumonia Elevated inflammatory markers Nausea vomiting and diarrhea secondary to above Elevated lipase level likely due to intractable nausea and vomiting Obesity with BMI 36.6 DVT prophylaxis Lovenox subcu Plan: Patient will be continued on oxygen supplementation and titrate down FiO2 as tolerated. Continue with dexamethasone 6 mg daily and Lovenox subcu and multivitamins. Continue GI and DVT prophylaxis. Pulmonary is on board. Patient is not a candidate for remdesivir at this time. Continue to follow closely.
--- NOTE | 2021-12-02 02:07 | P.PN ---
Subjective Progress Note Date: 12/01/21 Patient is a 66-year-old female with a known history of anxiety/depression panic disorder and previous history of smoking presents to ER with complaints of nausea vomiting diarrhea, cough and chest congestion and shortness of breath. Patient has not been feeling well for the past 2 weeks. Patient states that she took her grandchildren to the hospital at [facility]. Shortly after that patient became ill. Denied any complaints of chest pain. No abdominal pain. No headache or dizziness or lightheadedness. Chest x-ray showed diffuse bilateral infiltrates. Correlate for multifocal pneu monia. EKG showed normal sinus rhythm Laboratory showed WBC 6.3 hemoglobin 12.2 and platelets 131 lymphocytes 0.9 D- dimer 0.62 Sodium 142 potassium 3.4 chloride 106 magnesium 2.2 total bilirubin level is 1.7 AST 81 ALT 32 alk phos 120 LDH 1027 and CRP 4.2 Lipase level is 584 Coronavirus PCR On admission patient is tachypneic and pulse ox dropped down to 88% on room air. waas requiring oxygen at 4 L via nasal cannula. 11/30/2021 Patient is currently in the medical floor. Awake alert and oriented. No acute distress. Still having exertional dyspnea and feels very weak. Requiring oxygen 5 L via nasal cannula. Laboratory showed obesity 4.68 hemoglobin 11.3 and platelets 130 BUN 14.1 creatinine 0.7 LDH 364 and CRP 3.7 trending down. Patient is being continued dexamethasone, Lovenox subcu and multivitamin supplementation. On IV hydration with normal saline at 75 cc/h. 12/01/2021 Patient is currently sitting in the chair at bedside. Awake alert in no apparent distress. No complaints of chest pain or worsening shortness of breath. Patient has been afebrile. No nausea vomiting abdominal diarrhea. Currently requiring 5 L oxygen via nasal cannula. Patient is being current on dexamethasone, Lovenox subcu and multivitamin supplementation. Lab data showed D-dimer eleven 0.77 REVIEW OF SYSTEMS CONSTITUTIONAL: Denies fever or chills. CARDIOVASCULAR: Denies chest pain, orthopnea, PND or palpitations. RESPIRATORY: Denies cough. GASTROINTESTINAL: Denies abdominal pain, diarrhea, constipation, nausea or vomiting. MUSCULOSKELETAL: Denies myalgias. NEUROLOGIC: Denies numbness, tingling or weakness. ENDOCRINE: Denies fatigue, weight change, polydipsia or polyurina. GENITOURINARY: Denies burning, hematuria or urgency with micturation. HEMATOLOGIC: Denies history of anemia or bleeding. Objective - Vital Signs Vital signs: Vital Signs Temp 97.7 F 12/01/21 14:27 Pulse 77 12/01/21 14:27 Resp 20 12/01/21 14:27 BP 123/69 12/01/21 14:27 Pulse Ox 85 L 12/01/21 14:27 Intake & Output 11/30/21 12/01/21 12/01/21 18:59 06:59 18:59 Intake Total 900 Balance 900 Intake: IV 900 Sodium Chloride 0.9% 1, 900 000 ml @ 75 mls/hr IV . [id number] [facility] Rx#:[id number] Other: Voiding Method Bedpan Bedpan Bedpan # Voids 1 - Exam PHYSICAL EXAMINATION: Patient is lying in the bed comfortably, mild distress, awake alert and oriented.. HEENT: Normocephalic. Neck is supple. Pupils reactive. Nostrils clear. Oral cavity is moist. Neck reveals no JVD, carotid bruits, or thyromegaly. CHEST EXAMINATION: Trachea is central. Symmetrical expansion. Lung carmona clear to auscultation and percussion. CARDIAC: Normal S1, S2 with no gallops. No murmurs ABDOMEN: Soft. Bowel sounds normal. No organomegaly. No abdominal bruits. Extremities: reveal no edema. No clubbing or cyanosis Neurologically awake, alert, oriented x3 with well-coordinated movements. No focal deficits noted Skin: No rash or skin lesions. Psychiatric: Cooperative. Nonsuicidal, anxious Musculoskeletal: No joint swelling or deformity. Normal range of motion. - Labs CBC & Chem 7: 11/30/21 06:55 11/30/21 06:55 Assessment and Plan Assessment: Acute hypoxic respiratory failure requiring oxygen at 5 L via nasal cannula. Secondary to COVID-19 pneumonia. Patient has been having symptoms for more than 2 weeks. Patient is not vaccinated. Acute COVID-19 pneumonia Elevated inflammatory markers Nausea vomiting and diarrhea secondary to above Elevated lipase level likely due to intractable nausea and vomiting Obesity with BMI 36.6 DVT prophylaxis Lovenox subcu Plan: Patient will be continued on oxygen supplementation and titrate down FiO2 as tolerated. Continue with dexamethasone 6 mg daily and Lovenox subcu and multivitamins. Continue GI and DVT prophylaxis. Pulmonary is on board. Patient is not a candidate for remdesivir at this time. Continue to follow closely.
[2021-12-02] MEDS: ALPRAZolam 0.5 MG TAB PO PRN (05:23)
[2021-12-02] MEDS: ASCORBIC ACID 500 MG TAB PO SCH (08:34)
[2021-12-02] MEDS: ENOXAPARIN 40 MG/0.4 ML SYRINGE SQ SCH (08:34)
[2021-12-02] MEDS: CHOLECALCIFEROL 25 MCG (1000 IU) TABLET PO SCH (08:34)
[2021-12-02] MEDS: FAMOTIDINE 20 MG/2 ML VIAL IV SCH (08:34)
[2021-12-02] MEDS: DEXAMETHASONE SOD PHOSPHATE 10 MG/ML 1 ML VIAL IVP SCH (08:34)
[2021-12-02] MEDS: ZINC SULFATE 220 MG CAP PO SCH (08:34)
[2021-12-02 10:58] LABS: Basophils # (A) 0.01 X 10*3/uL (0.00-0.10); Basophils % (A) 0.1 %; Eosinophils # (A) 0.02 X 10*3/uL (0.04-0.35); Eosinophils % (A) 0.3 %; HCT 34.9 % (37.2-46.3); HGB 11.8 g/dL (12.0-15.0); Lymphocytes # (A) 1.08 X 10*3/uL (0.90-5.00); Lymphocytes % (A) 13.8 %; MCH 31.7 pg (27.0-32.0); MCHC 33.8 g/dL (32.0-37.0); MCV 93.8 fL (80.0-97.0); Mean Platelet Volume 10.3 fL (9.5-12.2); Monocytes # (A) 0.62 X 10*3/uL (0.20-1.00); Monocytes % (A) 7.9 %; Neutrophils # (A) 6.05 X 10*3/uL (1.80-7.70); Neutrophils % (A) 77.4 %; Platelet Count 171 X 10*3/uL (140-440); RBC 3.72 X 10*6/uL (4.10-5.20); RDW 15.4 % (11.5-14.5); WBC 7.82 X 10*3/uL (4.50-10.00)
[2021-12-02 11:12] LABS: African American GFR (CKD) 105.3 (60.0-200.0); Albumin 2.7 g/dL (3.8-4.9); Albumin/Globulin Ratio 0.78 (1.60-3.17); Anion Gap 11.1 mmol/L (10.00-18.00); BUN/Creat Ratio 21.69 Ratio (12.00-20.00); Blood Urea Nitrogen 14.9 mg/dL (9.0-27.0); C Reactive Protein 0.8 mg/dL (0.00-0.80); Calcium 7.8 mg/dL (8.7-10.3); Carbon Dioxide 23.9 mmol/L (20.0-27.5); Globulin 3.5 g/dL (1.6-3.3); Non-African American GFR(CKD) 90.8 (60.0-200.0); Potassium 3.6 mmol/L (3.5-5.5); Total Bilirubin 0.9 mg/dL (0.30-1.20); Total Protein 6.2 g/dL (6.2-8.2)
--- NOTE | 2021-12-02 18:01 | P.PN ---
Subjective Progress Note Date: 12/02/21 Principal diagnosis: Dyspnea 66-year-old female patient, came into the emergency department because of her last weakness, fatigue, nausea and emesis, diarrhea, cough and congestion and shortness of breath. Apparently, the patient has been essentially staying at home without any exposure to any individuals outside her house. Nevertheless, few weeks back, she took her grandchildren to [facility] in the short and she thought that she got exposed to COVID 19 at that time. She started getting symptomatic more than 2 weeks ago. She is coming in with worsening of shortness of breath and overall condition. Note that during this time, the patient did not seek any medical help and she did not take any treatment. The patient has not been vaccinated for COVID 19. She came into the emergency with diffuse bilateral pulmonary infiltrates and hypoxemia and the patient was placed on oxygen 6 L per minute nasal cannula. The patient was hemodynamically stable. The patient was somewhat dehydrated. BUN was at 17 with a creatinine of 0.7 and a white cell count is 6.3. LFTs showed an AST of 81, ALT of 32, alk phos of 120, Na 142, troponin was negative and the COVID 19 virus by PCR came back positive. The patient is seen today 11/30/2021 in follow-up on the regular medical floor. She is currently resting in bed. Awake and alert in no acute distress. She is still dyspneic with minimal exertion. Dyspneic with conversation. Fatigue and weak. He is currently on 5 L high flow nasal cannula to maintain O2 saturations in the low 90s. She's been afebrile. Hemodynamically stable. Labs are pending. She is continued on Decadron, Lovenox, vitamin supplements. The patient is seen today 12/01/2021 in follow-up on the regular medical floor. She is currently sitting up in a chair at the bedside. Awake and alert in no acute distress. She denies any worsening shortness of breath, cough or congestion. No fever or chills. She is maintaining O2 saturations in the 90s on 5 L/m per nasal cannula. She's been afebrile. Hemodynamically stable. She is continued on Decadron, Lovenox, vitamin supplements. White count 4.6. Hemoglobin 11.3. Leaflets 1:30. D-dimer 0.77. Sodium 144. Potassium 3.6. Creatinine 0.7. LDH 364. C-reactive protein 3.7. Lipase 130. On 12/02/2021 patient is seen in follow-up on medical surgical floor. She is currently on 5 L of oxygen pulse ox is 94%, does not appear to be in any acute distress, occasional cough. Patient has been afebrile, she continues on Decadron 6 blood gram daily, prophylactic Lovenox 40 mg and multivitamins, she was outside the window for Remdesivir. No worsening dyspnea or hypoxia, her last chest x-ray from yesterday showed patchy bilateral peripheral infiltrates compatible with atypical pneumonia. Labs have been reviewed her white blood cell, 7.8, hemoglobin is 11.8, d-dimer is 1.65, electrolytes and renal profile were unremarkable, her pro-calcitonin level was negative at 0.14. Objective - Vital Signs Vital signs: Vital Signs Temp 98.3 F 12/02/21 14:00 Pulse 60 12/02/21 14:00 Resp 20 12/02/21 14:00 BP 159/89 12/02/21 14:00 Pulse Ox 94 L 12/02/21 14:00 Intake & Output 12/01/21 12/02/21 12/02/21 18:59 06:59 18:59 Other: Voiding Method Bedpan Bedside Commode Bedside Commode Bedpan Bedpan # Voids 1 - Exam GENERAL EXAM: Alert, very pleasant 66-year-old white female, on 5 L of oxygen a pulse ox of 94-96% comfortable in no apparent distress. HEAD: Normocephalic/atraumatic. EYES: Normal reaction of pupils, equal size. Conjunctiva pink, sclera white. NOSE: Clear with pink turbinates. THROAT: No erythema or exudates. NECK: No masses, no JVD, no thyroid enlargement, no adenopathy. CHEST: No chest wall deformity. Symmetrical expansion. LUNGS: Equal air entry with diffuse bilateral crackles CVS: Regular rate and rhythm, normal S1 and S2, no gallops, no murmurs, no rubs ABDOMEN: Soft, nontender. No hepatosplenomegaly, normal bowel sounds, no guarding or rigidity. EXTREMITIES: No clubbing, no edema, no cyanosis, 2+ pulses and upper and lower extremities. MUSCULOSKELETAL: Muscle strength and tone normal. SPINE: No scoliosis or deformity SKIN: No rashes CENTRAL NERVOUS SYSTEM: Alert and oriented -3. No focal deficits, tone is normal in all 4 extremities. PSYCHIATRIC: Alert and oriented -3. Appropriate affect. Intact judgment and insight. - Labs CBC & Chem 7: 12/02/21 07:48 12/02/21 07:48 Labs: Abnormal Lab Results - Last 24 Hours (Table) 12/02/21 12/02/21 12/02/21 Range/Units 07:48 07:48 07:48 RBC 3.72 L (4.10-5.20) X 10*6/uL Hgb 11.8 L (12.0-15.0) g/dL Hct 34.9 L (37.2-46.3) % RDW 15.4 H (11.5-14.5) % Eosinophils # 0.02 L (0.04-0.35) X 10*3/uL D-Dimer 1.65 H (<0.60) mg/L FEU BUN/Creatinine Ratio 21.69 H (12.00-20.00) Ratio Calcium 7.8 L (8.7-10.3) mg/dL AST 57 H (13-35) U/L Lactate Dehydrogenase 287 H (120-246) U/L Albumin 2.7 L (3.8-4.9) g/dL Globulin 3.5 H (1.6-3.3) g/dL Albumin/Globulin Ratio 0.78 L (1.60-3.17) g/dL Assessment and Plan Plan: Assessment: #1. Acute COVID-19 related pneumonia with secondary dyspnea, cough, and acute hypoxic respiratory failure. Patient is a non-vaccinated adult, she presented with 2 week history of symptoms and has not received any outpatient treatment. She was outside the window for Remdesivir, she is currently on Decadron and prophylactic dose Lovenox #2. Acute hypoxic respiratory failure related to the above #3. Nausea, vomiting and diarrhea related to COVID-19 infection, improved #4. Obesity with a BMI of 36.6 kg/m #5. Lipase level elevation, nonspecific, improved with IV hydration Plan: Oxygenation levels remained fairly stable Patient is currently on 5 L of oxygen No worsening dyspnea or hypoxia Continue current medical treatment, continue current dose Decadron Continue current dose Lovenox Obtain lower extremity Dopplers in view of elevated d-dimer Follow-up d-dimer inflammatory markers tomorrow We'll continue to follow I performed a history & physical examination of the patient and discussed their management with my nurse practitioner, Taylor Chacko. I reviewed the nurse practitioner's note and agree with the documented findings and plan of care. Lung sounds are positive for diminished breath sounds throughout the lung carmona. The findings and the impression was discussed with the patient. I attest to the documentation by the nurse practitioner. Time with Patient: Less than 30
[2021-12-02] MEDS: FAMOTIDINE 20 MG TAB PO SCH (20:18)
[2021-12-02] MEDS: SODIUM CHLORIDE 0.9% 1,000 ML IV SCH ×2 (20:19→20:20)
--- NOTE | 2021-12-02 21:33 | US ---
EXAMINATION TYPE: US venous doppler duplex LE DATE OF EXAM: 12/02/2021 9:02 PM COMPARISON: NONE CLINICAL HISTORY: elevated d-dimer. Elevated D-Dimer. No hx of DVT per patient. SIDE PERFORMED: Bilateral TECHNIQUE: The lower extremity deep venous system is examined utilizing real time linear array sonog melvin with graded compression, doppler sonography and color-flow sonography. VESSELS IMAGED: Common Femoral Vein Deep Femoral Vein Greater Saphenous Vein * Femoral Vein Popliteal Vein Small Saphenous Vein * Proximal Calf Veins (* superficial vessels) -Exam slightly limited due to body habitus and edema. Right Leg: No evidence of DVT in veins imaged at this time. Left Leg: Duplicate popliteal vein noted. No evidence of DVT in veins imaged at this time. IMPRESSION: No evidence of deep vein thrombosis in both legs.
[2021-12-03] MEDS: ASCORBIC ACID 500 MG TAB PO SCH (08:06)
[2021-12-03] MEDS: ENOXAPARIN 40 MG/0.4 ML SYRINGE SQ SCH (08:06)
[2021-12-03] MEDS: ZINC SULFATE 220 MG CAP PO SCH (08:06)
[2021-12-03] MEDS: FAMOTIDINE 20 MG TAB PO SCH ×2 (08:06→20:54)
[2021-12-03] MEDS: CHOLECALCIFEROL 25 MCG (1000 IU) TABLET PO SCH (08:06)
[2021-12-03] MEDS: DEXAMETHASONE SOD PHOSPHATE 10 MG/ML 1 ML VIAL IVP SCH (08:06)
[2021-12-03 09:22] LABS: African American GFR (CKD) 110.1 (60.0-200.0); BUN/Creat Ratio 21.67 Ratio (12.00-20.00); C Reactive Protein 1.1 mg/dL (0.00-0.80); Calcium 7.9 mg/dL (8.7-10.3); Potassium 3.6 mmol/L (3.5-5.5)
--- NOTE | 2021-12-03 11:17 | P.PN ---
Subjective Progress Note Date: 12/02/21 Patient is a 66-year-old female with a known history of anxiety/depression panic disorder and previous history of smoking presents to ER with complaints of nausea vomiting diarrhea, cough and chest congestion and shortness of breath. Patient has not been feeling well for the past 2 weeks. Patient states that she took her grandchildren to the hospital at [facility]. Shortly after that patient became ill. Denied any complaints of chest pain. No abdominal pain. No headache or dizziness or lightheadedness. Chest x-ray showed diffuse bilateral infiltrates. Correlate for multifocal pneu monia. EKG showed normal sinus rhythm Laboratory showed WBC 6.3 hemoglobin 12.2 and platelets 131 lymphocytes 0.9 D- dimer 0.62 Sodium 142 potassium 3.4 chloride 106 magnesium 2.2 total bilirubin level is 1.7 AST 81 ALT 32 alk phos 120 LDH 1027 and CRP 4.2 Lipase level is 584 Coronavirus PCR On admission patient is tachypneic and pulse ox dropped down to 88% on room air. waas requiring oxygen at 4 L via nasal cannula. 11/30/2021 Patient is currently in the medical floor. Awake alert and oriented. No acute distress. Still having exertional dyspnea and feels very weak. Requiring oxygen 5 L via nasal cannula. Laboratory showed obesity 4.68 hemoglobin 11.3 and platelets 130 BUN 14.1 creatinine 0.7 LDH 364 and CRP 3.7 trending down. Patient is being continued dexamethasone, Lovenox subcu and multivitamin supplementation. On IV hydration with normal saline at 75 cc/h. 12/01/2021 Patient is currently sitting in the chair at bedside. Awake alert in no apparent distress. No complaints of chest pain or worsening shortness of breath. Patient has been afebrile. No nausea vomiting abdominal diarrhea. Currently requiring 5 L oxygen via nasal cannula. Patient is being current on dexamethasone, Lovenox subcu and multivitamin supplementation. Lab data showed D-dimer eleven 0.77 12/02/2021 Patient is currently resting in the bed. Awake alert and oriented x3. Still requiring oxygen at 5 L via nasal cannula. No complaints of chest pain or worsening shortness of breath. Patient has been afebrile. Continued on dexamethasone 6 mg daily, Lovenox subcu and multivitamin supplementation. Chest x-ray yesterday showed patchy bilateral peripheral infiltrate compatible with atypical pneumonia and continued follow-up is recommended. Lab data showed WBC 7.82 hemoglobin 11.8 and platelets 171 D-dimer level is 1.65 Sodium 142 potassium 3.6 chloride 107 BUN 14.79 and creatinine 0.7 calcium 7.8 LDH 287 CRP 0.8. REVIEW OF SYSTEMS CONSTITUTIONAL: Denies fever or chills. CARDIOVASCULAR: Denies chest pain, orthopnea, PND or palpitations. RESPIRATORY: Denies cough. GASTROINTESTINAL: Denies abdominal pain, diarrhea, constipation, nausea or vomiting. MUSCULOSKELETAL: Denies myalgias. NEUROLOGIC: Denies numbness, tingling or weakness. ENDOCRINE: Denies fatigue, weight change, polydipsia or polyurina. GENITOURINARY: Denies burning, hematuria or urgency with micturation. HEMATOLOGIC: Denies history of anemia or bleeding. Objective - Vital Signs Vital signs: Vital Signs Temp 97.9 F 12/02/21 22:09 Pulse 53 L 12/02/21 22:09 Resp 17 12/02/21 22:09 BP 159/75 12/02/21 22:09 Pulse Ox 97 12/02/21 22:09 Intake & Output 12/02/21 12/02/21 12/03/21 06:59 18:59 06:59 Intake Total 725 Balance 725 Intake: Intake, IV Titration 225 Amount Sodium Chloride 0.9% 1, 225 000 ml @ 75 mls/hr IV . [id number] [facility] Rx#:[id number] Oral 500 Other: Voiding Method Bedside Commode Bedside Commode Bedpan Bedpan # Voids 1 3 - Exam PHYSICAL EXAMINATION: Patient is lying in the bed comfortably, mild distress, awake alert and oriented.. HEENT: Normocephalic. Neck is supple. Pupils reactive. Nostrils clear. Oral cavity is moist. Neck reveals no JVD, carotid bruits, or thyromegaly. CHEST EXAMINATION: Trachea is central. Symmetrical expansion. Lung carmona clear to auscultation and percussion. CARDIAC: Normal S1, S2 with no gallops. No murmurs ABDOMEN: Soft. Bowel sounds normal. No organomegaly. No abdominal bruits. Extremities: reveal no edema. No clubbing or cyanosis Neurologically awake, alert, oriented x3 with well-coordinated movements. No focal deficits noted Skin: No rash or skin lesions. Psychiatric: Cooperative. Nonsuicidal, anxious Musculoskeletal: No joint swelling or deformity. Normal range of motion. - Labs CBC & Chem 7: 12/02/21 07:48 12/03/21 05:58 Labs: Abnormal Lab Results - Last 24 Hours (Table) 12/02/21 12/02/21 12/02/21 Range/Units 07:48 07:48 07:48 RBC 3.72 L (4.10-5.20) X 10*6/uL Hgb 11.8 L (12.0-15.0) g/dL Hct 34.9 L (37.2-46.3) % RDW 15.4 H (11.5-14.5) % Eosinophils # 0.02 L (0.04-0.35) X 10*3/uL D-Dimer 1.65 H (<0.60) mg/L FEU BUN/Creatinine Ratio 21.69 H (12.00-20.00) Ratio Calcium 7.8 L (8.7-10.3) mg/dL AST 57 H (13-35) U/L Lactate Dehydrogenase 287 H (120-246) U/L Albumin 2.7 L (3.8-4.9) g/dL Globulin 3.5 H (1.6-3.3) g/dL Albumin/Globulin Ratio 0.78 L (1.60-3.17) g/dL Assessment and Plan Assessment: Acute hypoxic respiratory failure requiring oxygen at 5 L via nasal cannula. Secondary to COVID-19 pneumonia. Patient has been having symptoms for more than 2 weeks. Patient is not vaccinated. Acute COVID-19 pneumonia Elevated inflammatory markers Nausea vomiting and diarrhea secondary to above Elevated lipase level likely due to intractable nausea and vomiting Obesity with BMI 36.6 DVT prophylaxis Lovenox subcu Plan: Patient will be continued on oxygen supplementation and titrate down FiO2 as to lerated. Continue with dexamethasone 6 mg daily and Lovenox subcu and multivitamins. Continue GI and DVT prophylaxis. Pulmonary is on board. Patient is not a candidate for remdesivir at this time. Continue to follow closely. Time with Patient: Greater than 30
--- NOTE | 2021-12-03 15:06 | CT ---
EXAMINATION TYPE: CT chest angio for PE DATE OF EXAM: 12/03/2021 COMPARISON: Chest x-ray from 2 days ago and older studies HISTORY: COVID with elevated d-dimer CT DLP: 845.8 mGycm. Automated Exposure Control for Dose Reduction was Utilized. CONTRAST: CTA scan of the thorax is performed with IV Contrast, patient injected with 100, wasted 19 mL of Isov ue 370, pulmonary embolism protocol. MIP Images are created on CT scanner and reviewed. FINDINGS: LUNGS: Bilateral irregular consolidations greatest in the periphery somewhat confluent in appearance are identified and correlate with most recent x-ray. No pleural effusion or pneumothorax seen bilater ally. Difficult to exclude underlying fibrotic change and/or pulmonary nodules without prior comparis on CT MEDIASTINUM: There is equal contrast in aorta versus pulmonary arteries. No thoracic aortic aneurysm or dissection. No definitive filling defect or acute pulmonary embolism. Prominent bilateral hilar an d mediastinal lymph nodes presumed reactive. Heart size upper limits of normal. No significant perica rdial effusion is seen. OTHER: Visualized spleen is heterogeneous and prominent. Mild to moderate multilevel spurring in the spine. Cholecystectomy clips. IMPRESSION: No acute pulmonary embolism identified. Bilateral irregular consolidations greatest in th e periphery with somewhat confluent in appearance consistent with known covid-19 infection.
--- NOTE | 2021-12-03 17:22 | P.PN ---
Subjective Progress Note Date: 12/03/21 Principal diagnosis: Dyspnea 66-year-old female patient, came into the emergency department because of her last weakness, fatigue, nausea and emesis, diarrhea, cough and congestion and shortness of breath. Apparently, the patient has been essentially staying at home without any exposure to any individuals outside her house. Nevertheless, few weeks back, she took her grandchildren to [facility] in the short and she thought that she got exposed to COVID 19 at that time. She started getting symptomatic more than 2 weeks ago. She is coming in with worsening of shortness of breath and overall condition. Note that during this time, the patient did not seek any medical help and she did not take any treatment. The patient has not been vaccinated for COVID 19. She came into the emergency with diffuse bilateral pulmonary infiltrates and hypoxemia and the patient was placed on oxygen 6 L per minute nasal cannula. The patient was hemodynamically stable. The patient was somewhat dehydrated. BUN was at 17 with a creatinine of 0.7 and a white cell count is 6.3. LFTs showed an AST of 81, ALT of 32, alk phos of 120, Na 142, troponin was negative and the COVID 19 virus by PCR came back positive. The patient is seen today 11/30/2021 in follow-up on the regular medical floor. She is currently resting in bed. Awake and alert in no acute distress. She is still dyspneic with minimal exertion. Dyspneic with conversation. Fatigue and weak. He is currently on 5 L high flow nasal cannula to maintain O2 saturations in the low 90s. She's been afebrile. Hemodynamically stable. Labs are pending. She is continued on Decadron, Lovenox, vitamin supplements. The patient is seen today 12/01/2021 in follow-up on the regular medical floor. She is currently sitting up in a chair at the bedside. Awake and alert in no acute distress. She denies any worsening shortness of breath, cough or congestion. No fever or chills. She is maintaining O2 saturations in the 90s on 5 L/m per nasal cannula. She's been afebrile. Hemodynamically stable. She is continued on Decadron, Lovenox, vitamin supplements. White count 4.6. Hemoglobin 11.3. Leaflets 1:30. D-dimer 0.77. Sodium 144. Potassium 3.6. Creatinine 0.7. LDH 364. C-reactive protein 3.7. Lipase 130. On 12/02/2021 patient is seen in follow-up on medical surgical floor. She is currently on 5 L of oxygen pulse ox is 94%, does not appear to be in any acute distress, occasional cough. Patient has been afebrile, she continues on Decadron 6 blood gram daily, prophylactic Lovenox 40 mg and multivitamins, she was outside the window for Remdesivir. No worsening dyspnea or hypoxia, her last chest x-ray from yesterday showed patchy bilateral peripheral infiltrates compatible with atypical pneumonia. Labs have been reviewed her white blood cell, 7.8, hemoglobin is 11.8, d-dimer is 1.65, electrolytes and renal profile were unremarkable, her pro-calcitonin level was negative at 0.14. on 12/03/2021 patient seen in follow-up on medical surgical floor. She is currently on 5 L of oxygen her pulse ox is 95%, she appears to be sleepy, but she does arouse to verbal and tactile stimulation, she states her breathing is okay, no worsening, occasional cough, no significant phlegm production, no complaints of chest pain, d-dimer continues to increase, today it's up to 2.38, lower extremity Dopplers were negative. The rest of the labs have been reviewed, electric shock and renal profile are unremarkable, CBC is still pending, inflammatory markers are improving Objective - Vital Signs Vital signs: Vital Signs Temp 97.9 F 12/03/21 14:00 Pulse 68 12/03/21 14:00 Resp 19 12/03/21 14:00 BP 132/74 12/03/21 14:00 Pulse Ox 95 12/03/21 14:00 Intake & Output 12/02/21 12/03/21 12/03/21 18:59 06:59 18:59 Intake Total 725 Balance 725 Intake: Intake, IV Titration 225 Amount Sodium Chloride 0.9% 1, 225 000 ml @ 75 mls/hr IV . [id number] Rx#:[id number] Oral 500 Other: Voiding Method Bedside Commode Bedside Commode Bedpan Bedpan # Voids 3 3 - Exam GENERAL EXAM: Alert, very pleasant 66-year-old white female, on 5 L of oxygen a pulse ox of 94-96% comfortable in no apparent distress. HEAD: Normocephalic/atraumatic. EYES: Normal reaction of pupils, equal size. Conjunctiva pink, sclera white. NOSE: Clear with pink turbinates. THROAT: No erythema or exudates. NECK: No masses, no JVD, no thyroid enlargement, no adenopathy. CHEST: No chest wall deformity. Symmetrical expansion. LUNGS: Equal air entry with diffuse bilateral crackles CVS: Regular rate and rhythm, normal S1 and S2, no gallops, no murmurs, no rubs ABDOMEN: Soft, nontender. No hepatosplenomegaly, normal bowel sounds, no guarding or rigidity. EXTREMITIES: No clubbing, no edema, no cyanosis, 2+ pulses and upper and lower extremities. MUSCULOSKELETAL: Muscle strength and tone normal. SPINE: No scoliosis or deformity SKIN: No rashes CENTRAL NERVOUS SYSTEM: Alert and oriented -3. No focal deficits, tone is nor mal in all 4 extremities. PSYCHIATRIC: Alert and oriented -3. Appropriate affect. Intact judgment and insight. - Labs CBC & Chem 7: 12/02/21 07:48 12/03/21 05:58 Labs: Abnormal Lab Results - Last 24 Hours (Table) 12/03/21 12/03/21 Range/Units 05:58 05:58 D-Dimer 2.38 H (<0.60) mg/L FEU BUN/Creatinine Ratio 21.67 H (12.00-20.00) Ratio Calcium 7.9 L (8.7-10.3) mg/dL C-Reactive Protein 1.10 H (0.00-0.80) mg/dL Assessment and Plan Plan: Assessment: #1. Acute COVID-19 related pneumonia with secondary dyspnea, cough, and acute hypoxic respiratory failure. Patient is a non-vaccinated adult, she presented with 2 week history of symptoms and has not received any outpatient treatment. She was outside the window for Remdesivir, she is currently on Decadron and prophylactic dose Lovenox #2. Acute hypoxic respiratory failure related to the above #3. Nausea, vomiting and diarrhea related to COVID-19 infection, improved #4. Obesity with a BMI of 36.6 kg/m #5. Lipase level elevation, nonspecific, improved with IV hydration Plan: Oxygenation levels remained fairly stable Patient is currently on 5 L of oxygen continue to wean to maintain O2 saturations at or above 90% No worsening dyspnea or hypoxia Continue current medical treatment, continue current dose Decadron Continue current dose Lovenox lower extremity Dopplers were negative for DVT Obtain CTA angiogram of the chest to rule out possibility of pulmonary embolism continue to follow I performed a history & physical examination of the patient and discussed their management with my nurse practitioner, Taylor Chacko. I reviewed the nurse practitioner's note and agree with the documented findings and plan of care. Lung sounds are positive for diminished breath sounds throughout the lung carmona. The findings and the impression was discussed with the patient. I at test to the documentation by the nurse practitioner. Time with Patient: Less than 30
[2021-12-03] MEDS: SODIUM CHLORIDE 0.9% 1,000 ML IV SCH (20:58)
[2021-12-04] MEDS: SODIUM CHLORIDE 0.9% 1,000 ML IV SCH ×2 (06:30→16:45)
[2021-12-04] MEDS: DEXAMETHASONE SOD PHOSPHATE 10 MG/ML 1 ML VIAL IVP SCH (08:12)
[2021-12-04] MEDS: ZINC SULFATE 220 MG CAP PO SCH (08:13)
[2021-12-04] MEDS: ASCORBIC ACID 500 MG TAB PO SCH (08:13)
[2021-12-04] MEDS: FAMOTIDINE 20 MG TAB PO SCH ×2 (08:13→20:15)
[2021-12-04] MEDS: ENOXAPARIN 40 MG/0.4 ML SYRINGE SQ SCH (08:13)
[2021-12-04] MEDS: CHOLECALCIFEROL 25 MCG (1000 IU) TABLET PO SCH (08:13)
--- NOTE | 2021-12-04 15:17 | P.PN ---
Subjective Progress Note Date: 12/04/21 Principal diagnosis: Dyspnea 66-year-old female patient, came into the emergency department because of her last weakness, fatigue, nausea and emesis, diarrhea, cough and congestion and shortness of breath. Apparently, the patient has been essentially staying at home without any exposure to any individuals outside her house. Nevertheless, few weeks back, she took her grandchildren to [facility] in the short and she thought that she got exposed to COVID 19 at that time. She started getting symptomatic more than 2 weeks ago. She is coming in with worsening of shortness of breath and overall condition. Note that during this time, the patient did not seek any medical help and she did not take any treatment. The patient has not been vaccinated for COVID 19. She came into the emergency with diffuse bilateral pulmonary infiltrates and hypoxemia and the patient was placed on oxygen 6 L per minute nasal cannula. The patient was hemodynamically stable. The patient was somewhat dehydrated. BUN was at 17 with a creatinine of 0.7 and a white cell count is 6.3. LFTs showed an AST of 81, ALT of 32, alk phos of 120, Na 142, troponin was negative and the COVID 19 virus by PCR came back positive. The patient is seen today 11/30/2021 in follow-up on the regular medical floor. She is currently resting in bed. Awake and alert in no acute distress. She is still dyspneic with minimal exertion. Dyspneic with conversation. Fatigue and weak. He is currently on 5 L high flow nasal cannula to maintain O2 saturations in the low 90s. She's been afebrile. Hemodynamically stable. Labs are pending. She is continued on Decadron, Lovenox, vitamin supplements. The patient is seen today 12/01/2021 in follow-up on the regular medical floor. She is currently sitting up in a chair at the bedside. Awake and alert in no acute distress. She denies any worsening shortness of breath, cough or congestion. No fever or chills. She is maintaining O2 saturations in the 90s on 5 L/m per nasal cannula. She's been afebrile. Hemodynamically stable. She is continued on Decadron, Lovenox, vitamin supplements. White count 4.6. Hemoglobin 11.3. Leaflets 1:30. D-dimer 0.77. Sodium 144. Potassium 3.6. Creatinine 0.7. LDH 364. C-reactive protein 3.7. Lipase 130. On 12/02/2021 patient is seen in follow-up on medical surgical floor. She is currently on 5 L of oxygen pulse ox is 94%, does not appear to be in any acute distress, occasional cough. Patient has been afebrile, she continues on Decadron 6 blood gram daily, prophylactic Lovenox 40 mg and multivitamins, she was outside the window for Remdesivir. No worsening dyspnea or hypoxia, her last chest x-ray from yesterday showed patchy bilateral peripheral infiltrates compatible with atypical pneumonia. Labs have been reviewed her white blood cell, 7.8, hemoglobin is 11.8, d-dimer is 1.65, electrolytes and renal profile were unremarkable, her pro-calcitonin level was negative at 0.14. on 12/03/2021 patient seen in follow-up on medical surgical floor. She is currently on 5 L of oxygen her pulse ox is 95%, she appears to be sleepy, but she does arouse to verbal and tactile stimulation, she states her breathing is okay, no worsening, occasional cough, no significant phlegm production, no complaints of chest pain, d-dimer continues to increase, today it's up to 2.38, lower extremity Dopplers were negative. The rest of the labs have been reviewed, electric shock and renal profile are unremarkable, CBC is still pending, inflammatory markers are improving On 12/04/2021 patient seen in follow-up on medical surgical floor. Patient is currently down to 3 L of oxygen pulse ox 95%, does not appear to be in any acute distress, she has been in bed for the most part of the day, she has not set up other than going to the bedside commode. Nursing staff reports patient refuses to get up in the chair for meals, but does not appear to be in any acute distress, no worsening dyspnea, she just complains of fatigue and weakness, no chest discomfort, no fever or chills, no significant cough or phlegm production. No new labs today. CTA chest has been reviewed showing no acute pulmonary embolism, bilateral irregular consolidations greatest in the periphery somewhat confluent opacities consistent with known history of COVID-19 infection, venous Doppler showed no evidence of DVT in both legs. Patient is currently on Decadron 6 blood gram daily, she is on prophylactic Lovenox 40 mg daily, and she is on multivitamins. Tolerating oral intake, no nausea vomiting or diarrhea, no abdominal pain. Objective - Vital Signs Vital signs: Vital Signs Temp 98.2 F 12/04/21 10:00 Pulse 64 12/04/21 10:00 Resp 16 12/04/21 10:00 BP 157/70 12/04/21 10:00 Pulse Ox 95 12/04/21 10:00 Intake & Output 12/03/21 12/04/21 12/04/21 18:59 06:59 18:59 Intake Total 600 Balance 600 Intake: IV 600 Sodium Chloride 0.9% 1, 600 000 ml @ 75 mls/hr IV . [id number] [facility] Rx#:[id number] Other: Voiding Method Bedside Commode Bedside Commode Bedpan Bedpan # Voids 2 3 - Exam GENERAL EXAM: Alert, very pleasant 66-year-old white female, on 3 L of oxygen a pulse ox of 94-96% comfortable in no apparent distress. HEAD: Normocephalic/atraumatic. EYES: Normal reaction of pupils, equal size. Conjunctiva pink, sclera white. NOSE: Clear with pink turbinates. THROAT: No erythema or exudates. NECK: No masses, no JVD, no thyroid enlargement, no adenopathy. CHEST: No chest wall deformity. Symmetrical expansion. LUNGS: Equal air entry with diffuse bilateral crackles CVS: Regular rate and rhythm, normal S1 and S2, no gallops, no murmurs, no rubs ABDOMEN: Soft, nontender. No hepatosplenomegaly, normal bowel sounds, no guarding or rigidity. EXTREMITIES: No clubbing, no edema, no cyanosis, 2+ pulses and upper and lower extremities. MUSCULOSKELETAL: Muscle strength and tone normal. SPINE: No scoliosis or deformity SKIN: No rashes CENTRAL NERVOUS SYSTEM: Alert and oriented -3. No focal deficits, tone is normal in all 4 extremities. PSYCHIATRIC: Alert and oriented -3. Appropriate affect. Intact judgment and i nsight. - Labs CBC & Chem 7: 12/02/21 07:48 12/03/21 05:58 Assessment and Plan Plan: Assessment: #1. Acute COVID-19 related pneumonia with secondary dyspnea, cough, and acute hypoxic respiratory failure. Patient is a non-vaccinated adult, she presented with 2 week history of symptoms and has not received any outpatient treatment. She was outside the window for Remdesivir, she is currently on Decadron and p rophylactic dose Lovenox #2. Acute hypoxic respiratory failure related to the above, improving and patient is currently down to 3 L with a pulse ox of 95% #3. Nausea, vomiting and diarrhea related to COVID-19 infection, improved #4. Obesity with a BMI of 36.6 kg/m #5. Lipase level elevation, nonspecific, improved with IV hydration Plan: Oxygenation levels are improving Patient is currently on 3 L of oxygen continue to wean to maintain O2 saturations at or above 90% No worsening dyspnea or hypoxia Continue current medical treatment, continue current dose Decadron Continue current dose Lovenox lower extremity Dopplers were negative for DVT CTA angiogram of the chest ruled out possibility of pulmonary embolism Patient needs to be up for meals in the chair, Increase activity, encourage deep breathing and coughing provide incentive spirometer continue to follow I performed a history & physical examination of the patient and discussed their management with my nurse practitioner, Taylor Chacko. I reviewed the nurse practitioner's note and agree with the documented findings and plan of care. Lung sounds are positive for diminished breath sounds throughout the lung carmona. The findings and the impression was discussed with the patient. I attest to the documentation by the nurse practitioner. Time with Patient: Less than 30
[2021-12-05] MEDS: SODIUM CHLORIDE 0.9% 1,000 ML IV SCH (06:49)
[2021-12-05] MEDS: CHOLECALCIFEROL 25 MCG (1000 IU) TABLET PO SCH (08:12)
[2021-12-05] MEDS: ZINC SULFATE 220 MG CAP PO SCH (08:12)
[2021-12-05] MEDS: DEXAMETHASONE SOD PHOSPHATE 10 MG/ML 1 ML VIAL IVP SCH (08:12)
[2021-12-05] MEDS: ASCORBIC ACID 500 MG TAB PO SCH (08:12)
[2021-12-05] MEDS: FAMOTIDINE 20 MG TAB PO SCH ×2 (08:12→20:39)
[2021-12-05] MEDS: ENOXAPARIN 40 MG/0.4 ML SYRINGE SQ SCH (08:13)
--- NOTE | 2021-12-05 08:56 | XR ---
EXAMINATION TYPE: XR chest 1V DATE OF EXAM: 12/05/2021 COMPARISON: Chest x-ray 12/01/2021, CT chest 12/03/2021 HISTORY: Covid pneumonia TECHNIQUE: Single frontal view of the chest is obtained. FINDINGS: Findings are similar to prior exams. No evident pneumothorax or pleural effusion. Cardiac mediastinal silhouette shows a similar appearance. Bilateral airspace disease persists in a predomina ntly peripheral distribution. IMPRESSION: Findings consistent with patient's history of Covid pneumonia
--- NOTE | 2021-12-05 10:19 | P.PN ---
Subjective Progress Note Date: 12/03/21 Patient is a 66-year-old female with a known history of anxiety/depression panic disorder and previous history of smoking presents to ER with complaints of nausea vomiting diarrhea, cough and chest congestion and shortness of breath. Patient has not been feeling well for the past 2 weeks. Patient states that she took her grandchildren to the hospital at [facility]. Shortly after that patient became ill. Denied any complaints of chest pain. No abdominal pain. No headache or dizziness or lightheadedness. Chest x-ray showed diffuse bilateral infiltrates. Correlate for multifocal pneu monia. EKG showed normal sinus rhythm Laboratory showed WBC 6.3 hemoglobin 12.2 and platelets 131 lymphocytes 0.9 D- dimer 0.62 Sodium 142 potassium 3.4 chloride 106 magnesium 2.2 total bilirubin level is 1.7 AST 81 ALT 32 alk phos 120 LDH 1027 and CRP 4.2 Lipase level is 584 Coronavirus PCR On admission patient is tachypneic and pulse ox dropped down to 88% on room air. waas requiring oxygen at 4 L via nasal cannula. 11/30/2021 Patient is currently in the medical floor. Awake alert and oriented. No acute distress. Still having exertional dyspnea and feels very weak. Requiring oxygen 5 L via nasal cannula. Laboratory showed obesity 4.68 hemoglobin 11.3 and platelets 130 BUN 14.1 creatinine 0.7 LDH 364 and CRP 3.7 trending down. Patient is being continued dexamethasone, Lovenox subcu and multivitamin supplementation. On IV hydration with normal saline at 75 cc/h. 12/01/2021 Patient is currently sitting in the chair at bedside. Awake alert in no apparent distress. No complaints of chest pain or worsening shortness of breath. Patient has been afebrile. No nausea vomiting abdominal diarrhea. Currently requiring 5 L oxygen via nasal cannula. Patient is being current on dexamethasone, Lovenox subcu and multivitamin supplementation. Lab data showed D-dimer eleven 0.77 12/02/2021 Patient is currently resting in the bed. Awake alert and oriented x3. Still requiring oxygen at 5 L via nasal cannula. No complaints of chest pain or worsening shortness of breath. Patient has been afebrile. Continued on dexamethasone 6 mg daily, Lovenox subcu and multivitamin supplementation. Chest x-ray yesterday showed patchy bilateral peripheral infiltrate compatible with atypical pneumonia and continued follow-up is recommended. Lab data showed WBC 7.82 hemoglobin 11.8 and platelets 171 D-dimer level is 1.65 Sodium 142 potassium 3.6 chloride 107 BUN 14.79 and creatinine 0.7 calcium 7.8 LDH 287 CRP 0.8. 12/03/2021 Patient is currently resting in the bed. Awake alert and oriented. Lethargic and weak. On 5 L oxygen via nasal cannula. Denied any complaints of worsening shortness of breath. No chest pain. Patient does have cough without any sputum production. No complaints of nausea vomiting or abdominal pain or diarrhea. Bilateral lower extremity duplex scan is negative. Patient continues to have elevated D-dimer level at 2.38. CTA of the chest was done showed no acute PE. Bilateral irregular consolidations greatest in the periphery with somewhat confluent in appearance consistent with known COVID-19 infection. Other laboratory data showed sodium 142 potassium 3.6 chloride 108 BUN 13 and creatinine 0.6 and CRP 1.1. Patient is being currently on dexamethasone, Lovenox subcu and multivitamin supplementation. Pulmonary is on board. REVIEW OF SYSTEMS CONSTITUTIONAL: Denies fever or chills. CARDIOVASCULAR: Denies chest pain, orthopnea, PND or palpitations. RESPIRATORY: Denies cough. GASTROINTESTINAL: Denies abdominal pain, diarrhea, constipation, nausea or vomiting. MUSCULOSKELETAL: Denies myalgias. NEUROLOGIC: Denies numbness, tingling or weakness. ENDOCRINE: Denies fatigue, weight change, polydipsia or polyurina. GENITOURINARY: Denies burning, hematuria or urgency with micturation. HEMATOLOGIC: Denies history of anemia or bleeding. Objective - Vital Signs Vital signs: Vital Signs Temp 98.0 F 12/03/21 18:30 Pulse 52 L 12/03/21 18:30 Resp 18 12/03/21 18:30 BP 149/74 12/03/21 18:30 Pulse Ox 97 12/03/21 18:30 Intake & Output 12/03/21 12/03/21 12/04/21 06:59 18:59 06:59 Other: Voiding Method Bedside Commode Bedpan # Voids 3 2 - Exam PHYSICAL EXAMINATION: Patient is lying in the bed comfortably, mild distress, awake alert and oriented.. HEENT: Normocephalic. Neck is supple. Pupils reactive. Nostrils clear. Oral cavity is moist. Neck reveals no JVD, carotid bruits, or thyromegaly. CHEST EXAMINATION: Trachea is central. Symmetrical expansion. Lung carmona clear to auscultation and percussion. CARDIAC: Normal S1, S2 with no gallops. No murmurs ABDOMEN: Soft. Bowel sounds normal. No organomegaly. No abdominal bruits. Extremities: reveal no edema. No clubbing or cyanosis Neurologically awake, alert, oriented x3 with well-coordinated movements. No focal deficits noted Skin: No rash or skin lesions. Psychiatric: Cooperative. Nonsuicidal, anxious Musculoskeletal: No joint swelling or deformity. Normal range of motion. - Labs CBC & Chem 7: 12/02/21 07:48 12/03/21 05:58 Labs: Abnormal Lab Results - Last 24 Hours (Table) 12/03/21 12/03/21 Range/Units 05:58 05:58 D-Dimer 2.38 H (<0.60) mg/L FEU BUN/Creatinine Ratio 21.67 H (12.00-20.00) Ratio Calcium 7.9 L (8.7-10.3) mg/dL C-Reactive Protein 1.10 H (0.00-0.80) mg/dL Assessment and Plan Assessment: Acute hypoxic respiratory failure requiring oxygen at 5 L via nasal cannula. Secondary to COVID-19 pneumonia. Patient has been having symptoms for more than 2 weeks. Patient is not vaccinated. Acute COVID-19 pneumonia Elevated inflammatory markers Nausea vomiting and diarrhea secondary to above Elevated lipase level likely due to intractable nausea and vomiting Obesity with BMI 36.6 DVT prophylaxis Lovenox subcu Plan: Patient will be continued on oxygen supplementation and titrate down FiO2 as tolerated. Continue with dexamethasone 6 mg daily and Lovenox subcu and multivitamins. Continue GI and DVT prophylaxis. Pulmonary is on board. Patient is not a candidate for remdesivir at this time. Continue to follow closely. Time with Patient: Greater than 30
--- NOTE | 2021-12-05 10:21 | P.PN ---
Subjective Progress Note Date: 12/04/21 Patient is a 66-year-old female with a known history of anxiety/depression panic disorder and previous history of smoking presents to ER with complaints of nausea vomiting diarrhea, cough and chest congestion and shortness of breath. Patient has not been feeling well for the past 2 weeks. Patient states that she took her grandchildren to the hospital at [facility]. Shortly after that patient became ill. Denied any complaints of chest pain. No abdominal pain. No headache or dizziness or lightheadedness. Chest x-ray showed diffuse bilateral infiltrates. Correlate for multifocal pneu monia. EKG showed normal sinus rhythm Laboratory showed WBC 6.3 hemoglobin 12.2 and platelets 131 lymphocytes 0.9 D- dimer 0.62 Sodium 142 potassium 3.4 chloride 106 magnesium 2.2 total bilirubin level is 1.7 AST 81 ALT 32 alk phos 120 LDH 1027 and CRP 4.2 Lipase level is 584 Coronavirus PCR On admission patient is tachypneic and pulse ox dropped down to 88% on room air. waas requiring oxygen at 4 L via nasal cannula. 11/30/2021 Patient is currently in the medical floor. Awake alert and oriented. No acute distress. Still having exertional dyspnea and feels very weak. Requiring oxygen 5 L via nasal cannula. Laboratory showed obesity 4.68 hemoglobin 11.3 and platelets 130 BUN 14.1 creatinine 0.7 LDH 364 and CRP 3.7 trending down. Patient is being continued dexamethasone, Lovenox subcu and multivitamin supplementation. On IV hydration with normal saline at 75 cc/h. 12/01/2021 Patient is currently sitting in the chair at bedside. Awake alert in no apparent distress. No complaints of chest pain or worsening shortness of breath. Patient has been afebrile. No nausea vomiting abdominal diarrhea. Currently requiring 5 L oxygen via nasal cannula. Patient is being current on dexamethasone, Lovenox subcu and multivitamin supplementation. Lab data showed D-dimer eleven 0.77 12/02/2021 Patient is currently resting in the bed. Awake alert and oriented x3. Still requiring oxygen at 5 L via nasal cannula. No complaints of chest pain or worsening shortness of breath. Patient has been afebrile. Continued on dexamethasone 6 mg daily, Lovenox subcu and multivitamin supplementation. Chest x-ray yesterday showed patchy bilateral peripheral infiltrate compatible with atypical pneumonia and continued follow-up is recommended. Lab data showed WBC 7.82 hemoglobin 11.8 and platelets 171 D-dimer level is 1.65 Sodium 142 potassium 3.6 chloride 107 BUN 14.79 and creatinine 0.7 calcium 7.8 LDH 287 CRP 0.8. 12/03/2021 Patient is currently resting in the bed. Awake alert and oriented. Lethargic and weak. On 5 L oxygen via nasal cannula. Denied any complaints of worsening shortness of breath. No chest pain. Patient does have cough without any sputum production. No complaints of nausea vomiting or abdominal pain or diarrhea. Bilateral lower extremity duplex scan is negative. Patient continues to have elevated D-dimer level at 2.38. CTA of the chest was done showed no acute PE. Bilateral irregular consolidations greatest in the periphery with somewhat confluent in appearance consistent with known COVID-19 infection. Other laboratory data showed sodium 142 potassium 3.6 chloride 108 BUN 13 and creatinine 0.6 and CRP 1.1. Patient is being currently on dexamethasone, Lovenox subcu and multivitamin supplementation. Pulmonary is on board. 12/04/2021 Patient is in the medical floor. Sitting up in the chair. Still feels lethargic and weak. Requiring oxygen at 3 L via nasal cannula. Still complains of exertional dyspnea. No complaints of nausea or vomiting abdominal pain or diarrhea. Tolerating oral diet slowly. Patient has been afebrile. Denied any dizziness or lightheadedness. Patient is being continued on dexamethasone 6 mg daily, Lovenox subcu and multivitamin supplementation. No leg swelling. Denied any sputum production. Patient does have some congested cough. REVIEW OF SYSTEMS CONSTITUTIONAL: Denies fever or chills. CARDIOVASCULAR: Denies chest pain, orthopnea, PND or palpitations. RESPIRATORY: Denies cough. GASTROINTESTINAL: Denies abdominal pain, diarrhea, constipation, nausea or vomiting. MUSCULOSKELETAL: Denies myalgias. NEUROLOGIC: Denies numbness, tingling or weakness. ENDOCRINE: Denies fatigue, weight change, polydipsia or polyurina. GENITOURINARY: Denies burning, hematuria or urgency with micturation. HEMATOLOGIC: Denies history of anemia or bleeding. Objective - Vital Signs Vital signs: Vital Signs Temp 97.9 F 12/04/21 22:00 Pulse 51 L 12/04/21 22:00 Resp 17 12/04/21 22:00 BP 150/72 01/05/22 22:00 Pulse Ox 96 12/04/21 22:00 Intake & Output 12/04/21 12/04/21 12/05/21 06:59 18:59 06:59 Intake Total 600 Balance 600 Intake: IV 600 Sodium Chloride 0.9% 1, 600 000 ml @ 75 mls/hr IV . [id number] [facility] Rx#:[id number] Other: Voiding Method Bedside Commode Bedpan # Voids 3 - Exam PHYSICAL EXAMINATION: Patient is lying in the bed comfortably, mild distress, awake alert and oriented.. HEENT: Normocephalic. Neck is supple. Pupils reactive. Nostrils clear. Oral cavity is moist. Neck reveals no JVD, carotid bruits, or thyromegaly. CHEST EXAMINATION: Trachea is central. Symmetrical expansion. Lung carmona clear to auscultation and percussion. CARDIAC: Normal S1, S2 with no gallops. No murmurs ABDOMEN: Soft. Bowel sounds normal. No organomegaly. No abdominal bruits. Extremities: reveal no edema. No clubbing or cyanosis Neurologically awake, alert, oriented x3 with well-coordinated movements. No focal deficits noted Skin: No rash or skin lesions. Psychiatric: Cooperative. Nonsuicidal, anxious Musculoskeletal: No joint swelling or deformity. Normal range of motion. - Labs CBC & Chem 7: 12/02/21 07:48 12/03/21 05:58 Assessment and Plan Assessment: Acute hypoxic respiratory failure requiring oxygen at 5 L-->3L via nasal c annula. Secondary to COVID-19 pneumonia. Patient has been having symptoms for more than 2 weeks. Patient is not vaccinated. Acute COVID-19 pneumonia Elevated inflammatory markers Nausea vomiting and diarrhea secondary to above Elevated lipase level likely due to intractable nausea and vomiting Obesity with BMI 36.6 DVT prophylaxis Lovenox subcu Plan: Patient will be continued on oxygen supplementation and titrate down FiO2 as tolerated. Continue with dexamethasone 6 mg daily and Lovenox subcu and multivitamins. Continue GI and DVT prophylaxis. Pulmonary is on board. Patient is not a candidate for remdesivir at this time. Continue to follow closely.
[2021-12-05 12:12] LABS: C Reactive Protein 0.7 mg/dL (0.00-0.80)
[2021-12-05] MEDS: MEGESTROL 40 MG TAB PO SCH (12:20)
[2021-12-05 14:29] VITALS: BMI 36.6
--- NOTE | 2021-12-05 15:53 | P.PN ---
Subjective Progress Note Date: 12/05/21 Principal diagnosis: Dyspnea 66-year-old female patient, came into the emergency department because of her last weakness, fatigue, nausea and emesis, diarrhea, cough and congestion and shortness of breath. Apparently, the patient has been essentially staying at home without any exposure to any individuals outside her house. Nevertheless, few weeks back, she took her grandchildren to [facility] in the short and she thought that she got exposed to COVID 19 at that time. She started getting symptomatic more than 2 weeks ago. She is coming in with worsening of shortness of breath and overall condition. Note that during this time, the patient did not seek any medical help and she did not take any treatment. The patient has not been vaccinated for COVID 19. She came into the emergency with diffuse bilateral pulmonary infiltrates and hypoxemia and the patient was placed on oxygen 6 L per minute nasal cannula. The patient was hemodynamically stable. The patient was somewhat dehydrated. BUN was at 17 with a creatinine of 0.7 and a white cell count is 6.3. LFTs showed an AST of 81, ALT of 32, alk phos of 120, Na 142, troponin was negative and the COVID 19 virus by PCR came back positive. The patient is seen today 11/30/2021 in follow-up on the regular medical floor. She is currently resting in bed. Awake and alert in no acute distress. She is still dyspneic with minimal exertion. Dyspneic with conversation. Fatigue and weak. He is currently on 5 L high flow nasal cannula to maintain O2 saturations in the low 90s. She's been afebrile. Hemodynamically stable. Labs are pending. She is continued on Decadron, Lovenox, vitamin supplements. The patient is seen today 12/01/2021 in follow-up on the regular medical floor. She is currently sitting up in a chair at the bedside. Awake and alert in no acute distress. She denies any worsening shortness of breath, cough or congestion. No fever or chills. She is maintaining O2 saturations in the 90s on 5 L/m per nasal cannula. She's been afebrile. Hemodynamically stable. She is continued on Decadron, Lovenox, vitamin supplements. White count 4.6. Hemoglobin 11.3. Leaflets 1:30. D-dimer 0.77. Sodium 144. Potassium 3.6. Creatinine 0.7. LDH 364. C-reactive protein 3.7. Lipase 130. On 12/02/2021 patient is seen in follow-up on medical surgical floor. She is currently on 5 L of oxygen pulse ox is 94%, does not appear to be in any acute distress, occasional cough. Patient has been afebrile, she continues on Decadron 6 blood gram daily, prophylactic Lovenox 40 mg and multivitamins, she was outside the window for Remdesivir. No worsening dyspnea or hypoxia, her last chest x-ray from yesterday showed patchy bilateral peripheral infiltrates compatible with atypical pneumonia. Labs have been reviewed her white blood cell, 7.8, hemoglobin is 11.8, d-dimer is 1.65, electrolytes and renal profile were unremarkable, her pro-calcitonin level was negative at 0.14. on 12/03/2021 patient seen in follow-up on medical surgical floor. She is currently on 5 L of oxygen her pulse ox is 95%, she appears to be sleepy, but she does arouse to verbal and tactile stimulation, she states her breathing is okay, no worsening, occasional cough, no significant phlegm production, no complaints of chest pain, d-dimer continues to increase, today it's up to 2.38, lower extremity Dopplers were negative. The rest of the labs have been reviewed, electric shock and renal profile are unremarkable, CBC is still pending, inflammatory markers are improving On 12/04/2021 patient seen in follow-up on medical surgical floor. Patient is currently down to 3 L of oxygen pulse ox 95%, does not appear to be in any acute distress, she has been in bed for the most part of the day, she has not set up other than going to the bedside commode. Nursing staff reports patient refuses to get up in the chair for meals, but does not appear to be in any acute distress, no worsening dyspnea, she just complains of fatigue and weakness, no chest discomfort, no fever or chills, no significant cough or phlegm production. No new labs today. CTA chest has been reviewed showing no acute pulmonary embolism, bilateral irregular consolidations greatest in the periphery somewhat confluent opacities consistent with known history of COVID-19 infection, venous Doppler showed no evidence of DVT in both legs. Patient is currently on Decadron 6 blood gram daily, she is on prophylactic Lovenox 40 mg daily, and she is on multivitamins. Tolerating oral intake, no nausea vomiting or diarrhea, no abdominal pain. On 12/05/2021 patient seen in follow-up on medical surgical floor. She is awake and alert, in no acute distress, she is currently on 3 L of oxygen, pulse ox is 92-95%, she is doing better today, still weak, still has exertional dyspnea, but no acute distress, vital signs have been stable, she's had no acute events overnight, she is starting to take in some nutritional supplements, no nausea vomiting or diarrhea, no abdominal pain. She remains on Decadron 6 mg daily, Lovenox 40 mg daily, she is on multivitamins. No acute events overnight, today's chest x-ray showing no evident pneumothorax or pleural effusion. There is bilateral airspace disease predominantly in the peripheral distribution without significant change. Today's labs have been reviewed, d-dimer is 1.54, LDH and CRP are now within normal range, with LDH at 236, and CRP is 0.70. Objective - Vital Signs Vital signs: Vital Signs Temp 98 F 12/05/21 14:00 Pulse 72 12/05/21 14:00 Resp 16 12/05/21 14:00 BP 123/70 12/05/21 14:00 Pulse Ox 95 12/05/21 14:00 Intake & Output 12/04/21 12/05/21 12/05/21 18:59 06:59 18:59 Intake Total 600 836 Balance 600 836 Weight 99.79 kg Intake: IV 600 600 Sodium Chloride 0.9% 1, 600 600 000 ml @ 75 mls/hr IV . [id number] [facility] Rx#:[id number] Oral 236 Other: # Voids 2 - Exam GENERAL EXAM: Alert, very pleasant 66-year-old white female, on 3 L of oxygen a pulse ox of 94-96% comfortable in no apparent distress. HEAD: Normocephalic/atraumatic. EYES: Normal reaction of pupils, equal size. Conjunctiva pink, sclera white. NOSE: Clear with pink turbinates. THROAT: No erythema or exudates. NECK: No masses, no JVD, no thyroid enlargement, no adenopathy. CHEST: No chest wall deformity. Symmetrical expansion. LUNGS: Equal air entry with diffuse bilateral crackles CVS: Regular rate and rhythm, normal S1 and S2, no gallops, no murmurs, no rubs ABDOMEN: Soft, nontender. No hepatosplenomegaly, normal bowel sounds, no guarding or rigidity. EXTREMITIES: No clubbing, no edema, no cyanosis, 2+ pulses and upper and lower extremities. MUSCULOSKELETAL: Muscle strength and tone normal. SPINE: No scoliosis or deformity SKIN: No rashes CENTRAL NERVOUS SYSTEM: Alert and oriented -3. No focal deficits, tone is normal in all 4 extremities. PSYCHIATRIC: Alert and oriented -3. Appropriate affect. Intact judgment and insight. - Labs CBC & Chem 7: 12/02/21 07:48 12/03/21 05:58 Labs: Abnormal Lab Results - Last 24 Hours (Table) 12/05/21 Range/Units 07:05 D-Dimer 1.54 H (<0.60) mg/L FEU Assessment and Plan Plan: Assessment: #1. Acute COVID-19 related pneumonia with secondary dyspnea, cough, and acute hypoxic respiratory failure. Patient is a non-vaccinated adult, she presented with 2 week history of symptoms and has not received any outpatient treatment. She was outside the window for Remdesivir, she is currently on Decadron and prophylactic dose Lovenox #2. Acute hypoxic respiratory failure related to the above, improving and patient is currently down to 3 L with a pulse ox of 95% #3. Nausea, vomiting and diarrhea related to COVID-19 infection, improved #4. Obesity with a BMI of 36.6 kg/m #5. Lipase level elevation, nonspecific, improved with IV hydration Plan: Patient is breathing more comfortably She is maintaining stable to saturations on 3 L of oxygen but generally patient is weak, still has some exertional dyspnea Increase activity as tolerated, vital signs have been stable Inflammatory markers are improving D-dimer is improving Continue current treatment with Decadron, Lovenox, multivitamins If remains stable continues to improve and tolerated activity better we will consider discharge home in the next 24 hours I performed a history & physical examination of the patient and discussed their management with my nurse practitioner, Taylor Chacko. I reviewed the nurse practitioner's note and agree with the documented findings and plan of care. Lung sounds are positive for diminished breath sounds throughout the lung carmona. The findings and the impression was discussed with the patient. I attest to the documentation by the nurse practitioner. Time with Patient: Less than 30
--- NOTE | 2021-12-05 22:02 | P.PN ---
Subjective Progress Note Date: 12/05/21 Patient is a 66-year-old female with a known history of anxiety/depression panic disorder and previous history of smoking presents to ER with complaints of nausea vomiting diarrhea, cough and chest congestion and shortness of breath. Patient has not been feeling well for the past 2 weeks. Patient states that she took her grandchildren to the hospital at [facility]. Shortly after that patient became ill. Denied any complaints of chest pain. No abdominal pain. No headache or dizziness or lightheadedness. Chest x-ray showed diffuse bilateral infiltrates. Correlate for multifocal pneu monia. EKG showed normal sinus rhythm Laboratory showed WBC 6.3 hemoglobin 12.2 and platelets 131 lymphocytes 0.9 D- dimer 0.62 Sodium 142 potassium 3.4 chloride 106 magnesium 2.2 total bilirubin level is 1.7 AST 81 ALT 32 alk phos 120 LDH 1027 and CRP 4.2 Lipase level is 584 Coronavirus PCR On admission patient is tachypneic and pulse ox dropped down to 88% on room air. waas requiring oxygen at 4 L via nasal cannula. 11/30/2021 Patient is currently in the medical floor. Awake alert and oriented. No acute distress. Still having exertional dyspnea and feels very weak. Requiring oxygen 5 L via nasal cannula. Laboratory showed obesity 4.68 hemoglobin 11.3 and platelets 130 BUN 14.1 creatinine 0.7 LDH 364 and CRP 3.7 trending down. Patient is being continued dexamethasone, Lovenox subcu and multivitamin supplementation. On IV hydration with normal saline at 75 cc/h. 12/01/2021 Patient is currently sitting in the chair at bedside. Awake alert in no apparent distress. No complaints of chest pain or worsening shortness of breath. Patient has been afebrile. No nausea vomiting abdominal diarrhea. Currently requiring 5 L oxygen via nasal cannula. Patient is being current on dexamethasone, Lovenox subcu and multivitamin supplementation. Lab data showed D-dimer eleven 0.77 12/02/2021 Patient is currently resting in the bed. Awake alert and oriented x3. Still requiring oxygen at 5 L via nasal cannula. No complaints of chest pain or worsening shortness of breath. Patient has been afebrile. Continued on dexamethasone 6 mg daily, Lovenox subcu and multivitamin supplementation. Chest x-ray yesterday showed patchy bilateral peripheral infiltrate compatible with atypical pneumonia and continued follow-up is recommended. Lab data showed WBC 7.82 hemoglobin 11.8 and platelets 171 D-dimer level is 1.65 Sodium 142 potassium 3.6 chloride 107 BUN 14.79 and creatinine 0.7 calcium 7.8 LDH 287 CRP 0.8. 12/03/2021 Patient is currently resting in the bed. Awake alert and oriented. Lethargic and weak. On 5 L oxygen via nasal cannula. Denied any complaints of worsening shortness of breath. No chest pain. Patient does have cough without any sputum production. No complaints of nausea vomiting or abdominal pain or diarrhea. Bilateral lower extremity duplex scan is negative. Patient continues to have elevated D-dimer level at 2.38. CTA of the chest was done showed no acute PE. Bilateral irregular consolidations greatest in the periphery with somewhat confluent in appearance consistent with known COVID-19 infection. Other laboratory data showed sodium 142 potassium 3.6 chloride 108 BUN 13 and creatinine 0.6 and CRP 1.1. Patient is being currently on dexamethasone, Lovenox subcu and multivitamin supplementation. Pulmonary is on board. 12/04/2021 Patient is in the medical floor. Sitting up in the chair. Still feels lethargic and weak. Requiring oxygen at 3 L via nasal cannula. Still complains of exertional dyspnea. No complaints of nausea or vomiting abdominal pain or diarrhea. Tolerating oral diet slowly. Patient has been afebrile. Denied any dizziness or lightheadedness. Patient is being continued on dexamethasone 6 mg daily, Lovenox subcu and multivitamin supplementation. No leg swelling. Denied any sputum production. Patient does have some congested cough. 12/05/2021 Patient is currently resting in the bed. Awake alert and oriented. Still feels very weak and lethargic. Currently requiring oxygen at 3 L via nasal cannula. Patient is also having poor oral intake. Seen by nutrition service and was started on appetite stimulant today. No fever no chills. No complaints of chest pain. No nausea vomiting abdominal pain or diarrhea. Chest x-ray today showed findings consistent with patient's history of COVID- pneumonia. Laboratory data showed D-dimer level trending down to 1.54. Patient is being continued on dexamethasone 6 mg IVP, Lovenox subcu and multivitamin supplementation. PT OT follow-up and patient may need rehab. Kevin christianson is on board. REVIEW OF SYSTEMS CONSTITUTIONAL: Denies fever or chills. CARDIOVASCULAR: Denies chest pain, orthopnea, PND or palpitations. RESPIRATORY: Denies cough. GASTROINTESTINAL: Denies abdominal pain, diarrhea, constipation, nausea or vomiting. MUSCULOSKELETAL: Denies myalgias. NEUROLOGIC: Denies numbness, tingling or weakness. ENDOCRINE: Denies fatigue, weight change, polydipsia or polyurina. GENITOURINARY: Denies burning, hematuria or urgency with micturation. HEMATOLOGIC: Denies history of anemia or bleeding. Objective - Vital Signs Vital signs: Vital Signs Temp 97.9 F 12/05/21 18:00 Pulse 66 12/05/21 18:00 Resp 16 12/05/21 18:00 BP 118/65 12/05/21 18:00 Pulse Ox 95 12/05/21 18:00 Intake & Output 12/05/21 12/05/21 12/06/21 06:59 18:59 06:59 Intake Total 1072 Balance 1072 Weight 99.79 kg Intake: IV 600 Sodium Chloride 0.9% 1, 600 000 ml @ 75 mls/hr IV . [id number] [facility] Rx#:[id number] Oral 472 Other: # Voids 2 1 - Exam PHYSICAL EXAMINATION: Patient is lying in the bed comfortably, mild distress, awake alert and oriented.. HEENT: Normocephalic. Neck is supple. Pupils reactive. Nostrils clear. Oral cavity is moist. Neck reveals no JVD, carotid bruits, or thyromegaly. CHEST EXAMINATION: Trachea is central. Symmetrical expansion. Lung carmona clear to auscultation and percussion. CARDIAC: Normal S1, S2 with no gallops. No murmurs ABDOMEN: Soft. Bowel sounds normal. No organomegaly. No abdominal bruits. Extremities: reveal no edema. No clubbing or cyanosis Neurologically awake, alert, oriented x3 with well-coordinated movements. No focal deficits noted Skin: No rash or skin lesions. Psychiatric: Cooperative. Nonsuicidal, anxious Musculoskeletal: No joint swelling or deformity. Normal range of motion. - Labs CBC & Chem 7: 12/02/21 07:48 12/03/21 05:58 Labs: Abnormal Lab Results - Last 24 Hours (Table) 12/05/21 Range/Units 07:05 D-Dimer 1.54 H (<0.60) mg/L FEU Assessment and Plan Assessment: Acute hypoxic respiratory failure requiring oxygen at 5 L-->3L via nasal cannula. Secondary to COVID-19 pneumonia. Patient has been having symptoms for more than 2 weeks. Patient is not vaccinated. Acute COVID-19 pneumonia Elevated inflammatory markers Nausea vomiting and diarrhea secondary to above Elevated lipase level likely due to intractable nausea and vomiting Obesity with BMI 36.6 DVT prophylaxis Lovenox subcu Plan: Patient will be continued on oxygen supplementation and titrate down FiO2 as tolerated. Continue with dexamethasone 6 mg daily and Lovenox subcu and multivitamins. Continue GI and DVT prophylaxis. Pulmonary is on board. Patient is not a candidate for remdesivir at this time. Continue to follow closely. Time with Patient: Greater than 30
[2021-12-06 06:06] VITALS: RESP 16
[2021-12-06] MEDS: DEXAMETHASONE SOD PHOSPHATE 10 MG/ML 1 ML VIAL IVP SCH (08:33)
[2021-12-06] MEDS: ENOXAPARIN 40 MG/0.4 ML SYRINGE SQ SCH (08:33)
[2021-12-06] MEDS: ASCORBIC ACID 500 MG TAB PO SCH (08:34)
[2021-12-06] MEDS: CHOLECALCIFEROL 25 MCG (1000 IU) TABLET PO SCH (08:34)
[2021-12-06] MEDS: FAMOTIDINE 20 MG TAB PO SCH (08:34)
[2021-12-06] MEDS: MEGESTROL 40 MG TAB PO SCH (08:34)
[2021-12-06] MEDS: ZINC SULFATE 220 MG CAP PO SCH (08:34)
[2021-12-06 11:43] LABS: Basophils # (A) 0.01 X 10*3/uL (0.00-0.10); Basophils % (A) 0.2 %; Eosinophils # (A) 0.05 X 10*3/uL (0.04-0.35); Eosinophils % (A) 0.9 %; HCT 35.6 % (37.2-46.3); HGB 12.4 g/dL (12.0-15.0); Lymphocytes # (A) 1.33 X 10*3/uL (0.90-5.00); Lymphocytes % (A) 22.8 %; MCH 32.1 pg (27.0-32.0); MCHC 34.8 g/dL (32.0-37.0); MCV 92.2 fL (80.0-97.0); Mean Platelet Volume 10.6 fL (9.5-12.2); Monocytes # (A) 0.55 X 10*3/uL (0.20-1.00); Monocytes % (A) 9.4 %; Neutrophils # (A) 3.88 X 10*3/uL (1.80-7.70); Neutrophils % (A) 66.4 %; Platelet Count 143 X 10*3/uL (140-440); RBC 3.86 X 10*6/uL (4.10-5.20); RDW 15.9 % (11.5-14.5); WBC 5.84 X 10*3/uL (4.50-10.00)
[2021-12-06 12:46] LABS: Anion Gap 10.9 mmol/L (10.00-18.00); BUN/Creat Ratio 17.3 Ratio (12.00-20.00); Blood Urea Nitrogen 10.4 mg/dL (9.0-27.0); C Reactive Protein 0.4 mg/dL (0.00-0.80); Carbon Dioxide 22.3 mmol/L (20.0-27.5); Non-African American GFR(CKD) 94.9 (60.0-200.0); Potassium 3.6 mmol/L (3.5-5.5)
[2021-12-06 14:44] VITALS: BP 120/72; PULSE 60; TEMP 97.8
--- NOTE | 2021-12-06 15:15 | P.PN ---
Subjective Progress Note Date: 12/06/21 Principal diagnosis: Dyspnea 66-year-old female patient, came into the emergency department because of her last weakness, fatigue, nausea and emesis, diarrhea, cough and congestion and shortness of breath. Apparently, the patient has been essentially staying at home without any exposure to any individuals outside her house. Nevertheless, few weeks back, she took her grandchildren to [facility] in the short and she thought that she got exposed to COVID 19 at that time. She started getting symptomatic more than 2 weeks ago. She is coming in with worsening of shortness of breath and overall condition. Note that during this time, the patient did not seek any medical help and she did not take any treatment. The patient has not been vaccinated for COVID 19. She came into the emergency with diffuse bilateral pulmonary infiltrates and hypoxemia and the patient was placed on oxygen 6 L per minute nasal cannula. The patient was hemodynamically stable. The patient was somewhat dehydrated. BUN was at 17 with a creatinine of 0.7 and a white cell count is 6.3. LFTs showed an AST of 81, ALT of 32, alk phos of 120, Na 142, troponin was negative and the COVID 19 virus by PCR came back positive. The patient is seen today 11/30/2021 in follow-up on the regular medical floor. She is currently resting in bed. Awake and alert in no acute distress. She is still dyspneic with minimal exertion. Dyspneic with conversation. Fatigue and weak. He is currently on 5 L high flow nasal cannula to maintain O2 saturations in the low 90s. She's been afebrile. Hemodynamically stable. Labs are pending. She is continued on Decadron, Lovenox, vitamin supplements. The patient is seen today 12/01/2021 in follow-up on the regular medical floor. She is currently sitting up in a chair at the bedside. Awake and alert in no acute distress. She denies any worsening shortness of breath, cough or congestion. No fever or chills. She is maintaining O2 saturations in the 90s on 5 L/m per nasal cannula. She's been afebrile. Hemodynamically stable. She is continued on Decadron, Lovenox, vitamin supplements. White count 4.6. Hemoglobin 11.3. Leaflets 1:30. D-dimer 0.77. Sodium 144. Potassium 3.6. Creatinine 0.7. LDH 364. C-reactive protein 3.7. Lipase 130. On 12/02/2021 patient is seen in follow-up on medical surgical floor. She is currently on 5 L of oxygen pulse ox is 94%, does not appear to be in any acute distress, occasional cough. Patient has been afebrile, she continues on Decadron 6 blood gram daily, prophylactic Lovenox 40 mg and multivitamins, she was outside the window for Remdesivir. No worsening dyspnea or hypoxia, her last chest x-ray from yesterday showed patchy bilateral peripheral infiltrates compatible with atypical pneumonia. Labs have been reviewed her white blood cell, 7.8, hemoglobin is 11.8, d-dimer is 1.65, electrolytes and renal profile were unremarkable, her pro-calcitonin level was negative at 0.14. on 12/03/2021 patient seen in follow-up on medical surgical floor. She is currently on 5 L of oxygen her pulse ox is 95%, she appears to be sleepy, but she does arouse to verbal and tactile stimulation, she states her breathing is okay, no worsening, occasional cough, no significant phlegm production, no complaints of chest pain, d-dimer continues to increase, today it's up to 2.38, lower extremity Dopplers were negative. The rest of the labs have been reviewed, electric shock and renal profile are unremarkable, CBC is still pending, inflammatory markers are improving On 12/04/2021 patient seen in follow-up on medical surgical floor. Patient is currently down to 3 L of oxygen pulse ox 95%, does not appear to be in any acute distress, she has been in bed for the most part of the day, she has not set up other than going to the bedside commode. Nursing staff reports patient refuses to get up in the chair for meals, but does not appear to be in any acute distress, no worsening dyspnea, she just complains of fatigue and weakness, no chest discomfort, no fever or chills, no significant cough or phlegm production. No new labs today. CTA chest has been reviewed showing no acute pulmonary embolism, bilateral irregular consolidations greatest in the periphery somewhat confluent opacities consistent with known history of COVID-19 infection, venous Doppler showed no evidence of DVT in both legs. Patient is currently on Decadron 6 blood gram daily, she is on prophylactic Lovenox 40 mg daily, and she is on multivitamins. Tolerating oral intake, no nausea vomiting or diarrhea, no abdominal pain. On 12/05/2021 patient seen in follow-up on medical surgical floor. She is awake and alert, in no acute distress, she is currently on 3 L of oxygen, pulse ox is 92-95%, she is doing better today, still weak, still has exertional dyspnea, but no acute distress, vital signs have been stable, she's had no acute events overnight, she is starting to take in some nutritional supplements, no nausea vomiting or diarrhea, no abdominal pain. She remains on Decadron 6 mg daily, Lovenox 40 mg daily, she is on multivitamins. No acute events overnight, today's chest x-ray showing no evident pneumothorax or pleural effusion. There is bilateral airspace disease predominantly in the peripheral distribution without significant change. Today's labs have been reviewed, d-dimer is 1.54, LDH and CRP are now within normal range, with LDH at 236, and CRP is 0.70. On 12/06/2021 patient seen in follow-up on medical surgical floor. She is awake and alert, in no acute distress, breathing comfortably, lung sounds are essentially clear to auscultation, doing much better, breathing easier, eating better, no complaints of worsening dyspnea or cough, she is on 3 L of oxygen pulse ox is 97%, she has had no acute events overnight, she states she has been up in the chair, tolerated activity well, slightly fatigued but no acute distress, has been stable in the last several days, improving. No Nausea vomiting or diarrhea, her last chest x-ray yesterday showed bilateral airspace disease with predominantly peripheral distribution Objective - Vital Signs Vital signs: Vital Signs Temp 97.8 F 12/06/21 14:00 Pulse 60 12/06/21 14:00 Resp 16 12/06/21 14:00 BP 120/72 12/06/21 14:00 Pulse Ox 94 L 12/06/21 14:00 Intake & Output 12/05/21 12/06/21 12/06/21 18:59 06:59 18:59 Intake Total 1072 472 Balance 1072 472 Weight 99.79 kg Intake: IV 600 Sodium Chloride 0.9% 1, 600 000 ml @ 75 mls/hr IV . [id number] [facility] Rx#:[id number] Oral 472 472 Other: # Voids 1 - Exam GENERAL EXAM: Alert, very pleasant 66-year-old white female, on 2 L of oxygen a pulse ox of 94-97% comfortable in no apparent distress. HEAD: Normocephalic/atraumatic. EYES: Normal reaction of pupils, equal size. Conjunctiva pink, sclera white. NOSE: Clear with pink turbinates. THROAT: No erythema or exudates. NECK: No masses, no JVD, no thyroid enlargement, no adenopathy. CHEST: No chest wall deformity. Symmetrical expansion. LUNGS: Equal air entry with diffuse bilateral crackles CVS: Regular rate and rhythm, normal S1 and S2, no gallops, no murmurs, no rubs ABDOMEN: Soft, nontender. No hepatosplenomegaly, normal bowel sounds, no guarding or rigidity. EXTREMITIES: No clubbing, no edema, no cyanosis, 2+ pulses and upper and lower extremities. MUSCULOSKELETAL: Muscle strength and tone normal. SPINE: No scoliosis or deformity SKIN: No rashes CENTRAL NERVOUS SYSTEM: Alert and oriented -3. No focal deficits, tone is normal in all 4 extremities. PSYCHIATRIC: Alert and oriented -3. Appropriate affect. Intact judgment and i nsight. - Labs CBC & Chem 7: 12/06/21 07:35 12/06/21 07:29 Labs: Abnormal Lab Results - Last 24 Hours (Table) 12/06/21 12/06/21 Range/Units 07:29 07:35 RBC 3.86 L (4.10-5.20) X 10*6/uL Hct 35.6 L (37.2-46.3) % MCH 32.1 H (27.0-32.0) pg RDW 15.9 H (11.5-14.5) % Calcium 8.0 L (8.7-10.3) mg/dL Assessment and Plan Plan: Assessment: #1. Acute COVID-19 related pneumonia with secondary dyspnea, cough, and acute hypoxic respiratory failure. Patient is a non-vaccinated adult, she presented with 2 week history of symptoms and has not received any outpatient treatment. She was outside the window for Remdesivir, she is currently on Decadron and prophylactic dose Lovenox #2. Acute hypoxic respiratory failure related to the above, improving and patient is currently down to 3 L with a pulse ox of 95% #3. Nausea, vomiting and diarrhea related to COVID-19 infection, improved #4. Obesity with a BMI of 36.6 kg/m #5. Lipase level elevation, nonspecific, improved with IV hydration Plan: Vital signs have been stable, patient is maintaining stable to saturations on 3 L of oxygen FiO2 has been dropped down to 2 L Inflammatory markers are improving, d-dimer is improving Patient has been increasing her activity, Appetite is improving No fever or chills She stable for discharge home from pulmonary perspective isn't cleared by medicine Outpatient follow-up with Dr. Polo in 2 weeks I performed a history & physical examination of the patient and discussed their management with my nurse practitioner, Taylor Chacko. I reviewed the nurse practitioner's note and agree with the documented findings and plan of care. Lung sounds are positive for diminished breath sounds throughout the lung carmona. The findings and the impression was discussed with the patient. I attest to the documentation by the nurse practitioner. Time with Patient: Less than 30
== END 2021-12-06 17:37 | disposition home or self-care (01) | DRG 177 ==
LOC: EC 11:35 → 4SSUR 14:36
PROVIDERS: ADMIT Internal Medicine; ATTEND Internal Medicine
DX: U07.1 COVID-19 (principal); J12.82 Pneumonia due to coronavirus disease 2019; J96.01 Acute respiratory failure with hypoxia; R19.7 Diarrhea, unspecified; F41.0 Panic disorder [episodic paroxysmal anxiety]; F32.A Depression, unspecified; Z68.36 Body mass index [BMI] 36.0-36.9, adult; E66.9 Obesity, unspecified; E86.0 Dehydration; Z79.899 Other long term (current) drug therapy; Z87.891 Personal history of nicotine dependence; R11.2 Nausea with vomiting, unspecified
CPT/HCPCS: 36415; 71045; 71046; 71275; 80048; 80053; 82150; 82728; 83615; 83690; 83735; 84145; 84484; 85025; 85379; 85610; 85730; 86140; 87635; 93005; 93970; 96361; 96374; 96375; 99285